=== PATIENT | male | born 1965 | race Caucasian/White ===

== ENCOUNTER 2016-07-20 11:15 | Inpatient (IN) | payer BC ==
[2016-07-20] MEDS ORDERED: Sodium Chloride 0.9% 1,000 ML IV ONE ×2 (11:43→15:52)
[2016-07-20] MEDS ORDERED: Ondansetron 4 MG/2 ML SDV IVPUSH ONE ×3 (11:43→15:45)
--- NOTE | 2016-07-20 11:56 | EDM.PDOC ---
ED HPI GI/ABDOMINAL - General Chief Complaint: Gastrointestinal Problem Stated Complaint: Vomiting Time Seen by Provider: 07/20/16 11:35 Source of Information: Reports: Patient History Limitations: Reports: No limitations - History of Present Illness INITIAL COMMENTS - FREE TEXT/NARRATIVE: HISTORY AND PHYSICAL: History of present illness: [Patient comes to the emergency room complaining of vomiting and diarrhea since 1 AM this morning. Symptoms came on suddenly while he was working during the night and have gradually worsened. He states that his entire abdomen hurts and he feels very nauseated even with drinking water. States that he's never had a stomach ache this bad. Had 1 episode of feeling constipated which quickly turned to diarrhea type stools. Stools are loose and watery and the urge to have a bowel movement hits fast. He describes the pain as a cramping sensation throughout his abdomen. He's not taken any medications for his symptoms. Does not drink alcohol. Has a history of hypertension and hypercholesterolemia. History of avascular necrosis to L hip. Surgical history includes tonsillectomy , right hip replacement, left ear surgery. He has not taken his medications today. He denies chest pain shortness of breath and difficulty breathing. Has no appetite since development of pain, vomiting or diarrhea. No burning with urination, urinary frequency or urgency. No fever or chills. Denies joint pain and muscle aches. No swelling to his feet or lower legs. Denies any cardiac history. Noticed small amount of blood on toilet paper while wiping. He admits to a history of hemorrhoids. Denies any rectal pain. Has one episode of loose bloody stool on the emergency room.] Review of systems: As per history of present illness and below otherwise all systems reviewed and negative. Past medical history: As per history of present illness and as reviewed below otherwise noncontributory. Surgical history: As per history of present illness and as reviewed below otherwise noncontributory. Social history: No reported history of drug or alcohol abuse. Family history: As per history of present illness and as reviewed below otherwise noncontributory. Physical exam: General: Well-developed well-nourished male in no acute distress. He appears uncomfortable rolling around on the exam table, holding his lower abdomen. HEENT: Atraumatic, normocephalic. Oral mucous membranes are mildly dry. neck supple, nontender, no lymphadenopathy. Lungs: Clear to auscultation, no wheezing crackles or rales. breath sounds equal bilaterally, chest nontender. Heart: S1S2, regular rate and rhythm., negative for clicks, rubs, or JVD. Abdomen: Abdominal exam is difficult due to Generalized tenderness throughout his abdomen with even light palpation. No CVA tenderness. No masses or abnormalities noted upon inspection. Pelvis: Stable nontender. Genitourinary: Deferred. Rectal: Deferred. Extremities: Atraumatic, no cyanosis feet or lower legs. Neurovascular unremarkable. Neuro: Awake, alert, oriented. Cranial nerves II through XII unremarkable. Motor and sensory unremarkable throughout. Exam nonfocal. Diagnostics: [CBC, CMP, urinalysis, amylase, lipase, CT abd and pelvis w/ contrast] Therapeutics: [Zofran 4 mg IV x3 while in ER, 1 L normal saline, Dilaudid 1 mg IV x 2, hyoscyamine 0.125mg SL Impression: [acute colitis, ischemic vs infectious or inflammatory ] Plan: [Discussed patient's CT findings and condition with Dr. Demetra Coe, who comes to the ER to examine patient. Dr. Matt Del Real agrees to accept patient for inpatient treatment. Zosyn 4.5gm IV started in ER prior to transfer to the floor.] Definitive disposition and diagnosis as appropriate pending reevaluation and review of above. - Related Data Allergies/ADRs: Allergies Allergy/AdvReac Type Severity Reaction Status Date / Time No Known Allergies Allergy Verified 07/20/16 11:31 Home Meds: Home Meds Buprenorphine HCl/Naloxone HCl [Suboxone 4 mg-1 mg Sl Film] 8 mg PO ASDIRECTED PRN 11/06/15 [History] Simvastatin [Zocor] 1 tab PO DAILY 11/06/15 [History] Valsartan/Hydrochlorothiazide [Valsartan-Hctz 160-25 mg Tab] 1 tab PO DAILY [History] Venlafaxine [Effexor] 75 mg PO DAILY 07/20/16 [History] Past Medical History Cardiovascular History: Reports: High cholesterol, Hypertension, PVD Other Respiratory History: states he thinks he has sleep apnea but has not been diagnosed, smokes 2 pks per day Gastrointestinal History: Reports: Hemorrhoids Neurological History: Reports: Neuropathy, peripheral Psychiatric History: Reports: Anxiety, Depression Endocrine/Metabolic History: Reports: Obesity/BMI 30+ Hematologic History: Reports: None Immunologic History: Reports: None Oncologic (Cancer) History: Reports: None Dermatologic History: Reports: None - Past Surgical History HEENT Surgical History: Reports: Adenoidectomy, Naso-sinus surgery, Tonsillectomy Male Surgical History: Reports: Vasectomy Other Musculoskeletal Surgeries/Procedures:: tendon release lt elbow, rt JOSEPHINE, avascular necrosis of the hip, Social & Family History - Family History Family Medical History: Noncontributory - Tobacco Use Smoking Status *Q: Current Every Day Smoker Years of Tobacco use: 30 Packs/Tins Daily: 1 Used Tobacco, but Quit: No Second Hand Smoke Exposure: No - Caffeine Use Caffeine Use: Reports: None - Alcohol Use Days Per Week of Alcohol Use: 0 - Recreational Drug Use Recreational Drug Use: No Drug Use in Last 12 Months: No ED ROS GENERAL - Review of Systems Review Of Systems: ROS reveals no pertinent complaints other than HPI. ED EXAM, GI/ABD - Physical Exam Exam: See Below Course - Vital Signs Last Recorded V/S: Last Vital Signs Temp 97 F 07/20/16 11:32 Pulse 79 07/20/16 15:55 Resp 18 07/20/16 15:55 BP 138/71 07/20/16 15:55 Pulse Ox 96 07/20/16 15:55 - Orders/Labs/Meds Orders: Active Orders 24 hr Category Date Time Status Abdomen Pelvis w Cont [CT] Stat Exams 07/20/16 13:24 Taken Labs: Laboratory Tests 07/20/16 07/20/16 07/20/16 Range/Units 11:57 11:57 11:57 WBC 13.09 H (4.0-11.0) K/uL RBC 5.14 (4.50-5.90) M/uL Hgb 15.7 (13.0-17.0) g/dL Hct 45.3 (38.0-50.0) % MCV 88.1 (80.0-98.0) fL MCH 30.5 (27.0-32.0) pg MCHC 34.7 (31.0-37.0) g/dL RDW Std Deviation 39.9 (28.0-62.0) fl RDW Coeff of Aliza 12 (11.0-15.0) % Plt Count 230 (150-400) K/uL MPV 10.20 (7.40-12.00) fL Neut % (Auto) 81.3 H (48.0-80.0) % Lymph % (Auto) 11.9 L (16.0-40.0) % [place] % (Auto) 6.3 (0.0-15.0) % Eos % (Auto) 0.3 (0.0-7.0) % Baso % (Auto) 0.2 (0.0-1.5) % Neut # (Auto) 10.6 H (1.4-5.7) K/uL Lymph # (Auto) 1.6 (0.6-2.4) K/uL [place] # (Auto) 0.8 (0.0-0.8) K/uL Eos # (Auto) 0.0 (0.0-0.7) K/uL Baso # (Auto) 0.0 (0.0-0.1) K/uL Nucleated RBC % 0.0 /100WBC Nucleated RBCs # 0 K/uL Lactate (0.20-2.00) mmol/L Sodium 136 (136-146) mmol/L Potassium 3.8 (3.5-5.1) mmol/L Chloride 102 (98-110) mmol/L Carbon Dioxide 24 (21-31) mmol/L BUN 19 (6.0-23.0) mg/dL Creatinine 0.9 (0.6-1.5) mg/dL Est Cr Clr Drug Dosing 103.42 mL/min Estimated GFR (MDRD) > 60.0 ml/min Glucose 276 H (60-110) mg/dL Hemoglobin A1c 9.6 H (0.0-6.0) % Calcium 9.2 (8.8-10.8) mg/dL Total Bilirubin 0.8 (0.1-1.5) mg/dL AST 23 (5-40) IU/L ALT 29 (8-54) IU/L Alkaline Phosphatase 75 (40-150) Total Protein 7.2 (6.0-8.0) g/dL Albumin 4.2 (3.5-5.0) g/dL Globulin 3.0 (2.0-3.5) g/dL Albumin/Globulin Ratio 1.4 (1.3-2.8) Amylase 17 (10-90) U/L Lipase 19 (7-80) U/L Urine Color Urine Appearance Urine pH (5.0-8.0) Ur Specific [place] (1.001-1.035) Urine Protein (NEGATIVE) mg/dL Urine Glucose (UA) (NEGATIVE) mg/dL Urine Ketones (NEGATIVE) mg/dL Urine Occult Blood (NEGATIVE) Urine Nitrite (NEGATIVE) Urine Bilirubin (NEGATIVE) Urine Urobilinogen (<2.0) EU/dL Ur Leukocyte Esterase (NEGATIVE) Urine RBC (0-2/HPF) Urine WBC (0-5/HPF) Ur Squamous Epith Cells Urine Bacteria (NEGATIVE) Urine Mucus (NONE-MOD) 07/20/16 07/20/16 Range/Units 12:58 15:15 WBC (4.0-11.0) K/uL RBC (4.50-5.90) M/uL Hgb (13.0-17.0) g/dL Hct (38.0-50.0) % MCV (80.0-98.0) fL MCH (27.0-32.0) pg MCHC (31.0-37.0) g/dL RDW Std Deviation (28.0-62.0) fl RDW Coeff of Aliza (11.0-15.0) % Plt Count (150-400) K/uL MPV (7.40-12.00) fL Neut % (Auto) (48.0-80.0) % Lymph % (Auto) (16.0-40.0) % [place] % (Auto) (0.0-15.0) % Eos % (Auto) (0.0-7.0) % Baso % (Auto) (0.0-1.5) % Neut # (Auto) (1.4-5.7) K/uL Lymph # (Auto) (0.6-2.4) K/uL [place] # (Auto) (0.0-0.8) K/uL Eos # (Auto) (0.0-0.7) K/uL Baso # (Auto) (0.0-0.1) K/uL Nucleated RBC % /100WBC Nucleated RBCs # K/uL Lactate 2.1 H (0.20-2.00) mmol/L Sodium (136-146) mmol/L Potassium (3.5-5.1) mmol/L Chloride (98-110) mmol/L Carbon Dioxide (21-31) mmol/L BUN (6.0-23.0) mg/dL Creatinine (0.6-1.5) mg/dL Est Cr Clr Drug Dosing mL/min Estimated GFR (MDRD) ml/min Glucose (60-110) mg/dL Hemoglobin A1c (0.0-6.0) % Calcium (8.8-10.8) mg/dL Total Bilirubin (0.1-1.5) mg/dL AST (5-40) IU/L ALT (8-54) IU/L Alkaline Phosphatase (40-150) Total Protein (6.0-8.0) g/dL Albumin (3.5-5.0) g/dL Globulin (2.0-3.5) g/dL Albumin/Globulin Ratio (1.3-2.8) Amylase (10-90) U/L Lipase (7-80) U/L Urine Color YELLOW Urine Appearance CLEAR Urine pH 6.0 (5.0-8.0) Ur Specific [place] 1.025 (1.001-1.035) Urine Protein 30 (NEGATIVE) mg/dL Urine Glucose (UA) 500 H (NEGATIVE) mg/dL Urine Ketones TRACE H (NEGATIVE) mg/dL Urine Occult Blood TRACE-INTACT (NEGATIVE) Urine Nitrite NEGATIVE (NEGATIVE) Urine Bilirubin NEGATIVE (NEGATIVE) Urine Urobilinogen 0.2 (<2.0) EU/dL Ur Leukocyte Esterase NEGATIVE (NEGATIVE) Urine RBC 0-2 (0-2/HPF) Urine WBC NONE SEEN (0-5/HPF) Ur Squamous Epith Cells FEW Urine Bacteria NOT SEEN (NEGATIVE) Urine Mucus LIGHT (NONE-MOD) Meds: Medications Discontinued Medications Generic Name Dose Route Start Last Admin Trade Name Freq PRN Reason Stop Dose Admin Hydromorphone HCl 1 mg 07/20/16 15:45 07/20/16 15:51 Dilaudid IM 07/20/16 15:46 1 mg ONETIME ONE Administration Hydromorphone HCl 0.5 mg 07/20/16 16:42 07/20/16 16:53 Dilaudid IVPUSH 07/20/16 16:43 0.5 mg ONETIME ONE Administration Hyoscyamine 0.125 mg 07/20/16 12:19 07/20/16 12:32 Hyomax-Sl SL 07/20/16 12:20 0.125 mg ONETIME ONE Administration Sodium Chloride 1,000 mls @ 999 mls/hr 07/20/16 11:43 07/20/16 11:51 Normal Saline IV 07/20/16 12:43 999 mls/hr STAT ONE Administration Piperacillin Sod/Tazobactam 100 mls @ 100 mls/hr 07/20/16 15:52 07/20/16 16: 14 Sod 4.5 gm/ Sodium Chloride IV 07/20/16 16:51 100 mls/hr ONETIME ONE Administration Sodium Chloride 1,000 mls @ 999 mls/hr 07/20/16 15:52 07/20/16 16:14 Normal Saline IV 07/20/16 16:52 100 mls/hr STAT ONE Infusion Iopamidol 100 ml 07/20/16 16:04 07/20/16 16:06 Isovue-370 (76%) IVPUSH 07/20/16 16:05 100 ml ONETIME STA Administration Ondansetron HCl 4 mg 07/20/16 11:43 07/20/16 11:52 Zofran IVPUSH 07/20/16 11:44 4 mg ONETIME ONE Administration Ondansetron HCl 4 mg 07/20/16 12:17 07/20/16 12:20 Zofran IVPUSH 07/20/16 12:18 4 mg ONETIME ONE Administration Ondansetron HCl 4 mg 07/20/16 15:45 07/20/16 15:52 Zofran IVPUSH 07/20/16 15:46 4 mg ONETIME ONE Administration Departure - Departure Time of Disposition: 16:06 Disposition: Admitted As Inpatient 65 Condition: good Clinical Impression: Colitis - My Orders Last 24 Hours: My Active Orders 07/20/16 13:24 Abdomen Pelvis w Cont [CT] Stat - Assessment/Plan Last 24 Hours: My Active Orders 07/20/16 13:24 Abdomen Pelvis w Cont [CT] Stat
[2016-07-20] MEDS ORDERED: Hyoscyamine 0.125 MG Tab.SL SL ONE (12:19)
[2016-07-20 12:28] LABS: CHLORIDE,CL 102 mmol/L (98-110); SODIUM,NA 136 mmol/L (136-146)
[2016-07-20] MEDS ORDERED: HYDROmorphone 1 MG/ML Syringe IM ONE (15:45)
[2016-07-20] MEDS ORDERED: Piperacillin/Tazobactam 4.5 GM in Sodium Chloride 0.9% 100 ML IV ONE (15:52)
--- NOTE | 2016-07-20 15:59 | PCM.CONS ---
H&P History of Present Illness - General Date of Service: 07/20/16 Admit Problem/Dx: Acute abdominal pain Source of Information: Patient History Limitations: Reports: No limitations - History of Present Illness Initial Comments - Free Text/Narative: Patient is a 50 year old male who presents with acute onset of LUQ pain. He noted it last evening around 1 am. He states that the pain is sharp, burning, and constant. He rates the pain as "12 out of 10". It was associated with nausea and vomiting. The vomit was food then bilious, but not bloody. He also had diarrhea. The diarrhea was watery until his last BM right now which was bloody. He denies fever, chills,chest pain, shortness of breath, infectious contacts, recent illness, recent travel or ever having symptoms like this in the past. The pain resolved with narcotic administration in the ED. abdomen Pain Score (Numeric/FACES): 10 - Related Data Allergies/Adverse Reactions: Allergies Allergy/AdvReac Type Severity Reaction Status Date / Time No Known Allergies Allergy Verified 07/20/16 11:31 Home Medications: Home Meds Buprenorphine HCl/Naloxone HCl [Suboxone 4 mg-1 mg Sl Film] 8 mg PO ASDIRECTED PRN 11/06/15 [History] Simvastatin [Zocor] 1 tab PO DAILY 11/06/15 [History] Valsartan/Hydrochlorothiazide [Valsartan-Hctz 160-25 mg Tab] 1 tab PO DAILY [History] Venlafaxine [Effexor] 75 mg PO DAILY 07/20/16 [History] Past Medical History Cardiovascular History: Reports: High cholesterol, Hypertension, PVD Other Respiratory History: states he thinks he has sleep apnea but has not been diagnosed, smokes 2 pks per day Gastrointestinal History: Reports: Hemorrhoids Neurological History: Reports: Neuropathy, peripheral Psychiatric History: Reports: Anxiety, Depression Endocrine/Metabolic History: Reports: Obesity/BMI 30+ Other Endocrine/Metabolic History: Recent high glucose measurements, but no diagnosis of diabetes. Hematologic History: Reports: None Immunologic History: Reports: None Oncologic (Cancer) History: Reports: None Dermatologic History: Reports: None - Past Surgical History HEENT Surgical History: Reports: Adenoidectomy, Naso-sinus surgery, Tonsillectomy Male Surgical History: Reports: Vasectomy Other Musculoskeletal Surgeries/Procedures:: tendon release lt elbow, rt JOSEPHINE, avascular necrosis of the hip, Social & Family History - Family History Family Medical History: Noncontributory - Tobacco Use Smoking Status *Q: Current Every Day Smoker Years of Tobacco use: 30 Packs/Tins Daily: 1 Used Tobacco, but Quit: No Second Hand Smoke Exposure: No - Caffeine Use Caffeine Use: Reports: None - Alcohol Use Days Per Week of Alcohol Use: 0 - Recreational Drug Use Recreational Drug Use: No Drug Use in Last 12 Months: No H&P Review of Systems - Review of Systems: Review Of Systems: See Below Exam - Exam Exam: See Below - Vital Signs Vital Signs: Last Vital Signs Temp 36.1 C 07/20/16 11:32 Pulse 71 07/20/16 15:26 Resp 20 07/20/16 15:26 BP 137/71 07/20/16 15:26 Pulse Ox 98 07/20/16 15:26 Weight: 117.5 kg - Exam General: alert, oriented, moderate distress HEENT: Conjunctiva clear, Posterior pharynx clear, Pupils equal, Pupils reactive Neck: supple Lungs: Clear to auscultation, Normal respiratory effort Cardiovascular: regular rate, regular rhythm Abdomen: other (Mild distension, tender to palpation in the LUQ and epigastric area with palpation, no evidence of diffuse tenderness or peritoneal signs) Extremities: normal inspection, normal pulses - Patient Data Lab Results last 24 hrs: Laboratory Results - last 24 hr 07/20/16 07/20/16 07/20/16 Range/Units 11:57 11:57 12:58 WBC 13.09 H (4.0-11.0) K/uL RBC 5.14 (4.50-5.90) M/uL Hgb 15.7 (13.0-17.0) g/dL Hct 45.3 (38.0-50.0) % MCV 88.1 (80.0-98.0) fL MCH 30.5 (27.0-32.0) pg MCHC 34.7 (31.0-37.0) g/dL RDW Std Deviation 39.9 (28.0-62.0) fl RDW Coeff of Aliza 12 (11.0-15.0) % Plt Count 230 (150-400) K/uL MPV 10.20 (7.40-12.00) fL Neut % (Auto) 81.3 H (48.0-80.0) % Lymph % (Auto) 11.9 L (16.0-40.0) % [place] % (Auto) 6.3 (0.0-15.0) % Eos % (Auto) 0.3 (0.0-7.0) % Baso % (Auto) 0.2 (0.0-1.5) % Neut # (Auto) 10.6 H (1.4-5.7) K/uL Lymph # (Auto) 1.6 (0.6-2.4) K/uL [place] # (Auto) 0.8 (0.0-0.8) K/uL Eos # (Auto) 0.0 (0.0-0.7) K/uL Baso # (Auto) 0.0 (0.0-0.1) K/uL Nucleated RBC % 0.0 /100WBC Nucleated RBCs # 0 K/uL Lactate (0.20-2.00) mmol/L Sodium 136 (136-146) mmol/L Potassium 3.8 (3.5-5.1) mmol/L Chloride 102 (98-110) mmol/L Carbon Dioxide 24 (21-31) mmol/L BUN 19 (6.0-23.0) mg/dL Creatinine 0.9 (0.6-1.5) mg/dL Est Cr Clr Drug Dosing 103.42 mL/min Estimated GFR (MDRD) > 60.0 ml/min Glucose 276 H (60-110) mg/dL Calcium 9.2 (8.8-10.8) mg/dL Total Bilirubin 0.8 (0.1-1.5) mg/dL AST 23 (5-40) IU/L ALT 29 (8-54) IU/L Alkaline Phosphatase 75 (40-150) Total Protein 7.2 (6.0-8.0) g/dL Albumin 4.2 (3.5-5.0) g/dL Globulin 3.0 (2.0-3.5) g/dL Albumin/Globulin Ratio 1.4 (1.3-2.8) Amylase 17 (10-90) U/L Lipase 19 (7-80) U/L Urine Color YELLOW Urine Appearance CLEAR Urine pH 6.0 (5.0-8.0) Ur Specific [place] 1.025 (1.001-1.035) Urine Protein 30 (NEGATIVE) mg/dL Urine Glucose (UA) 500 H (NEGATIVE) mg/dL Urine Ketones TRACE H (NEGATIVE) mg/dL Urine Occult Blood TRACE-INTACT (NEGATIVE) Urine Nitrite NEGATIVE (NEGATIVE) Urine Bilirubin NEGATIVE (NEGATIVE) Urine Urobilinogen 0.2 (<2.0) EU/dL Ur Leukocyte Esterase NEGATIVE (NEGATIVE) Urine RBC 0-2 (0-2/HPF) Urine WBC NONE SEEN (0-5/HPF) Ur Squamous Epith Cells FEW Urine Bacteria NOT SEEN (NEGATIVE) Urine Mucus LIGHT (NONE-MOD) 07/20/16 Range/Units 15:15 WBC (4.0-11.0) K/uL RBC (4.50-5.90) M/uL Hgb (13.0-17.0) g/dL Hct (38.0-50.0) % MCV (80.0-98.0) fL MCH (27.0-32.0) pg MCHC (31.0-37.0) g/dL RDW Std Deviation (28.0-62.0) fl RDW Coeff of Aliza (11.0-15.0) % Plt Count (150-400) K/uL MPV (7.40-12.00) fL Neut % (Auto) (48.0-80.0) % Lymph % (Auto) (16.0-40.0) % [place] % (Auto) (0.0-15.0) % Eos % (Auto) (0.0-7.0) % Baso % (Auto) (0.0-1.5) % Neut # (Auto) (1.4-5.7) K/uL Lymph # (Auto) (0.6-2.4) K/uL [place] # (Auto) (0.0-0.8) K/uL Eos # (Auto) (0.0-0.7) K/uL Baso # (Auto) (0.0-0.1) K/uL Nucleated RBC % /100WBC Nucleated RBCs # K/uL Lactate 2.1 H (0.20-2.00) mmol/L Sodium (136-146) mmol/L Potassium (3.5-5.1) mmol/L Chloride (98-110) mmol/L Carbon Dioxide (21-31) mmol/L BUN (6.0-23.0) mg/dL Creatinine (0.6-1.5) mg/dL Est Cr Clr Drug Dosing mL/min Estimated GFR (MDRD) ml/min Glucose (60-110) mg/dL Calcium (8.8-10.8) mg/dL Total Bilirubin (0.1-1.5) mg/dL AST (5-40) IU/L ALT (8-54) IU/L Alkaline Phosphatase (40-150) Total Protein (6.0-8.0) g/dL Albumin (3.5-5.0) g/dL Globulin (2.0-3.5) g/dL Albumin/Globulin Ratio (1.3-2.8) Amylase (10-90) U/L Lipase (7-80) U/L Urine Color Urine Appearance Urine pH (5.0-8.0) Ur Specific [place] (1.001-1.035) Urine Protein (NEGATIVE) mg/dL Urine Glucose (UA) (NEGATIVE) mg/dL Urine Ketones (NEGATIVE) mg/dL Urine Occult Blood (NEGATIVE) Urine Nitrite (NEGATIVE) Urine Bilirubin (NEGATIVE) Urine Urobilinogen (<2.0) EU/dL Ur Leukocyte Esterase (NEGATIVE) Urine RBC (0-2/HPF) Urine WBC (0-5/HPF) Ur Squamous Epith Cells Urine Bacteria (NEGATIVE) Urine Mucus (NONE-MOD) Result Diagrams: 07/20/16 11:57 07/20/16 11:57 Consult PN Assessment/Plan Procedures: Procedures ANTINUCLEAR ANTIBODIES (01/10/16) ASSAY OF FREE TESTOSTERONE (01/10/16) ASSAY OF FREE THYROXINE (10/26/15) ASSAY OF TOTAL TESTOSTERONE (01/10/16) ASSAY THYROID STIM HORMONE (10/26/15) CHEST X-RAY 2VW FRONTAL&LATL (04/10/16) COLONOSCOPY AND BIOPSY (11/09/15) COLONOSCOPY W/LESION REMOVAL (11/09/15) COMPLETE CBC W/AUTO DIFF WBC (10/26/15) COMPREHEN METABOLIC PANEL (10/26/15) CULTURE SCREEN ONLY (04/10/16) EMERGENCY DEPT VISIT (06/20/14) GLYCOSYLATED HEMOGLOBIN TEST (01/10/16) LIPID PANEL (10/26/15) MRI JNT OF LWR EXTRE W/O DYE (09/27/14) MRI LOWER EXTREMITY W/O DYE (09/27/14) ORGANIC ACID SINGLE QUANT (01/10/16) PROTEIN E-PHORESIS SERUM (01/10/16) ROUTINE VENIPUNCTURE (01/10/16) STREP A ASSAY W/OPTIC (04/10/16) THER/PROPH/DIAG INJ SC/IM (01/22/14) US XTR NON-VASC COMPLETE (09/27/14) VITAMIN B-12 (01/10/16) X-RAY EXAM OF FOOT (06/20/14) X-RAY EXAM OF HIP (09/22/14) (1) Acute ischemic colitis SNOMED Code(s): 02020280 Code(s): K55.039 - ACUTE ISCHEMIA OF LARGE INTESTINE, EXTENT UNSPECIFIED Current Visit: Yes Problem List Initiated/Reviewed/Updated: Yes Plan: At this point in time the patient's pain is localized the left upper quadrant. His bowel on CT shows inflamed colon in the water-shed distribution around the splenic flexure with mild-moderate amount of thickening. There is no evidence of pneumo-intestinalis or perforation. His lactate is 2.1 and WBC is 13. His vitals are stable. Given the distribution of colon effected, i believe this is acute ischemic colitis. The etiology of this is not clear at this point. My differential would highly favor a non-occlusive reason such as hypovolemia, infection, vaso-constrictive medication/drug, or combination of these with his overall health state. The patient doesn't have any CT evidence of embolic occlusion of the major vessels and he has minimal atherosecleotic disease which I observed and confirmed with radiology. He does have significant fatty liver disease. He is a heavy smoker with HLD, HTN, and possible new onset diabetes (checking hemoglobin A1C). The patient is stable overall at this point in time. I will have him admitted to the medicine service. He should be kept on strict NPO, have IV fluid resucitation, and be started emperically on Zosyn. Would place patient on a dilaudid [employer] for pain control. I would get serial lactates and cbc (every 6 hours). I will perform serial abdominal exams on him. If he has any deterioration in clinical status or physical exam he should be transferred to a hospital with a higher level of care. If he has perforation or ischemic colitis requiring surgery this may require a temporary abdominal closure and ICU care that is beyond the scope of resources at this facility.
[2016-07-20] MEDS ORDERED: Iopamidol 755 Mg/ML 100 ML Bottle IVPUSH STA (16:04)
[2016-07-20] MEDS ORDERED: HYDROmorphone 2 MG/ML Syringe IVPUSH ONE (16:42)
[2016-07-20] MEDS ORDERED: Promethazine 25 MG/ML SDV IM PRN (17:41)
[2016-07-20] MEDS: HYDROmorphone/Normal Saline 6 MG/30 ML PCA Vial IV PRN (18:21)
[2016-07-20] MEDS: Sodium Chloride 0.9% 1,000 ML IV SCH (18:22)
[2016-07-20] MEDS ORDERED: Ondansetron 4 MG/2 ML SDV IVPUSH PRN (19:32)
[2016-07-20] MEDS: Insulin Aspart 100 Units/ML 3 ML Pen SUBCUT SCH (19:33)
--- NOTE | 2016-07-20 19:38 | PCM.HP ---
H&P History of Present Illness - General Admit Problem/Dx: Acute abdominal pain - History of Present Illness Initial Comments - Free Text/Narative: 50 yo male with pmh of hyperlipdemia and hypertension who presents with one day history of abdominal pain. He has associated symptoms of nausea and vomiting. This morning he did have red blood in stool. He denies any fevers or chills. He was evaluated in the ED with CT scan of abdomen which reported wall thickening involving the colon from the mid to distal transverse colon to the splenic flexture with surrounding inflammatory stranding consistent with an acute colitis. abdomen Pain Score (Numeric/FACES): 5 - Related Data Allergies/Adverse Reactions: Allergies Allergy/AdvReac Type Severity Reaction Status Date / Time No Known Allergies Allergy Verified 07/20/16 11:31 Home Medications: Home Meds Buprenorphine HCl/Naloxone HCl [Suboxone 4 mg-1 mg Sl Film] 8 mg PO ASDIRECTED PRN 11/06/15 [History] Simvastatin [Zocor] 40 mg PO BEDTIME 11/06/15 [History] Valsartan/Hydrochlorothiazide [Valsartan-Hctz 160-25 mg Tab] 1 tab PO DAILY [History] Venlafaxine HCl [Venlafaxine ER] 75 mg PO DAILY 07/21/16 [History] Past Medical History Cardiovascular History: Reports: High cholesterol, Hypertension, PVD Other Respiratory History: states he thinks he has sleep apnea but has not been diagnosed, smokes 2 pks per day Gastrointestinal History: Reports: Hemorrhoids Neurological History: Reports: Neuropathy, peripheral Psychiatric History: Reports: Anxiety, Depression Endocrine/Metabolic History: Reports: Obesity/BMI 30+ Other Endocrine/Metabolic History: Recent high glucose measurements, but no diagnosis of diabetes. Hematologic History: Reports: None Immunologic History: Reports: None Oncologic (Cancer) History: Reports: None Dermatologic History: Reports: None - Past Surgical History HEENT Surgical History: Reports: Adenoidectomy, Naso-sinus surgery, Tonsillectomy Male Surgical History: Reports: Vasectomy Other Musculoskeletal Surgeries/Procedures:: tendon release lt elbow, rt JOSEPHINE, avascular necrosis of the hip, Social & Family History - Family History Family Medical History: Noncontributory - Tobacco Use Smoking Status *Q: Current Every Day Smoker Years of Tobacco use: 30 Packs/Tins Daily: 1 Used Tobacco, but Quit: No Second Hand Smoke Exposure: No - Caffeine Use Caffeine Use: Reports: None - Alcohol Use Days Per Week of Alcohol Use: 0 - Recreational Drug Use Recreational Drug Use: No Drug Use in Last 12 Months: No H&P Review of Systems - Review of Systems: Review Of Systems: See Below General: Reports: no symptoms HEENT: Reports: no symptoms Pulmonary: Reports: No Symptoms Cardiovascular: Reports: no symptoms Gastrointestinal: Reports: Abdominal pain, Bloody stool, Diarrhea, Nausea, Vomiting Genitourinary: Reports: no symptoms Musculoskeletal: Reports: no symptoms Skin: Reports: no symptoms Psychiatric: Reports: no symptoms Neurological: Reports: No Symptoms Hematologic/Lymphatic: Reports: no symptoms Immunologic: Reports: no symptoms Exam - Exam Exam: See Below - Vital Signs Vital Signs: Last Vital Signs Temp 37.4 C 07/20/16 18:42 Pulse 85 07/20/16 18:42 Resp 18 07/20/16 18:42 BP 147/97 H 07/20/16 18:42 Pulse Ox 95 07/20/16 18:42 Weight: 118.025 kg - Exam General: alert, oriented, 4 Lungs: Clear to auscultation, Normal respiratory effort Cardiovascular: regular rate, regular rhythm Abdomen: normal bowel sounds, soft, tenderness (patient has recently received pain medications). No: distention, guarding, rigidity, rebound Extremities: normal inspection. No: edema Skin: warm, dry, intact - Patient Data Result Diagrams: 07/21/16 14:58 07/21/16 03:10 *Q Meaningful Use (ADM) - VTE *Q VTE Criteria *Q: - Stroke *Q Stroke Criteria *Q: - AMI *Q AMI Criteria *Q: Problem List Initiated/Reviewed/Updated: Yes Orders Last 24hrs: Active Orders 24 hr Category Date Time Status Admission Status [Patient Status] [ADT] Routine ADT 07/20/16 16:06 Active Accu Check [Blood Glucose Check, Bedside] [RC] Q6H Care 07/20/16 17:45 Active Antiembolic Devices [RC] PER UNIT ROUTINE Care 07/20/16 19:33 Ordered Intake and Output [RC] QSHIFT Care 07/20/16 19:32 Ordered Oxygen Therapy [RC] PRN Care 07/20/16 19:32 Ordered Up ad Anali [RC] ASDIRECTED Care 07/20/16 19:32 Ordered VTE/DVT Education [RC] PER UNIT ROUTINE Care 07/20/16 19:32 Ordered Vital Signs [RC] Q4H Care 07/20/16 19:32 Ordered Nothing Per Oral Diet [DIET] Diet 07/20/16 Dinner Active CBC WITH AUTO DIFF [HEME] Q6H Lab 07/20/16 21:00 Ordered CBC WITH AUTO DIFF [HEME] Q6H Lab 07/21/16 03:00 Ordered CBC WITH AUTO DIFF [HEME] Q6H Lab 07/21/16 09:00 Ordered CBC WITH AUTO DIFF [HEME] Q6H Lab 07/21/16 15:00 Ordered CBC WITH AUTO DIFF [HEME] Q6H Lab 07/21/16 21:00 Ordered CBC WITH AUTO DIFF [HEME] Routine Lab 07/21/16 05:00 Ordered CDIFF TOX A+B [OP] Routine Lab 07/20/16 19:31 Uncollected CMP [COMPREHENSIVE METABOLIC PN,CMP] [CHEM] Routine Lab 07/21/16 05:00 Ordered CULTURE STOOL + CAMPY+SHIGATOX [RM] Routine Lab 07/20/16 19:31 Uncollected LACTIC ACID,WHOLE BLOOD [BG] Q6H Lab 07/20/16 21:15 Ordered LACTIC ACID,WHOLE BLOOD [BG] Q6H Lab 07/21/16 03:15 Ordered WBC, STOOL [OP] Routine Lab 07/20/16 19:31 Uncollected HYDROmorphone/Normal Saline [Dilaudid SPRAY MACHINE TENDER 6 MG in NS 30 Med 07/20/16 17:36 Active ML] 6 mg IV ASDIRECTED PRN Insulin Aspart [NovoLOG] Med 07/20/16 19:00 Active See Protocol SUBCUT Q6H Ondansetron [Zofran] Med 07/20/16 19:32 Ordered 4 mg IVPUSH Q4H PRN Piperacillin/Tazobactam [Piperacil-Tazobact] 4.5 gm Med 07/20/16 22:00 Active Sodium Chloride 0.9% [Normal Saline] 100 ml IV Q6H Promethazine [Phenergan] Med 07/20/16 17:41 Active 12.5 mg IM Q6H PRN Sodium Chloride 0.9% [Normal Saline] 1,000 ml Med 07/20/16 17:45 Active IV ASDIRECTED Sequential Compression Device [OM.PC] Per Unit Routine Oth 07/20/16 19:32 Ordered Resuscitation Status Routine Resus Stat 07/20/16 19:32 Ordered Medication Orders Hydromorphone HCl (Dilaudid Sack Maker 6 Mg In Ns 30 Ml) 6 mg IV ASDIRECTED PRN; Protocol PRN Reason: Abdominal Pain Last Admin: 07/20/16 18:21 Dose: 6 mg Sodium Chloride (Normal Saline) 1,000 mls @ 175 mls/hr IV ASDIRECTED WOJCIECH Last Admin: 07/20/16 18:22 Dose: 100 mls/hr Piperacillin Sod/Tazobactam (Sod 4.5 gm/ Sodium Chloride) 100 mls @ 100 mls/hr IV Q6H WOJCIECH Insulin Aspart (Novolog) 0 unit SUBCUT Q6H WOJCIECH PRN Reason: Protocol Promethazine HCl (Phenergan) 12.5 mg IM Q6H PRN PRN Reason: Nausea/Vomiting Last Admin: 07/20/16 18:16 Dose: 12.5 mg Assessment/Plan Comment:: 51 yo male admitted with acute colitis. I appreciate Dr. Coe's consult. Will fluid rescucitate with IV fluids, keep NPO and place on zosyn. Will check lactic acid and CBC q6hrs.
--- NOTE | 2016-07-20 19:50 | PCM.SN ---
- Free Text/Narrative Note: Serial Abdominal Exam #1: Patient is on the floor. He is NPO with IVF resuscitation ongoing. He has received one dose of zosyn. Subjectively he feels much improved. 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 His vitals have been stable since admission. Patient having good UOP. On physical exam his abdomen is less distended and far less tender. He remains tender in the LUQ but less so. Will follow up on labs this evening and continue serial abdominal exams.
[2016-07-20] MEDS: Piperacillin/Tazobactam 4.5 GM in Sodium Chloride 0.9% 100 ML IV SCH (21:26)
[2016-07-21] MEDS: Insulin Aspart 100 Units/ML 3 ML Pen SUBCUT SCH ×4 (00:16→18:33)
[2016-07-21] MEDS: Sodium Chloride 0.9% 1,000 ML IV SCH ×4 (00:21→21:06)
[2016-07-21] MEDS: Piperacillin/Tazobactam 4.5 GM in Sodium Chloride 0.9% 100 ML IV SCH ×5 (03:21→22:21)
[2016-07-21 03:47] LABS: CHLORIDE,CL 106 mmol/L (98-110); SODIUM,NA 139 mmol/L (136-146)
--- NOTE | 2016-07-21 08:04 | PCM.PN ---
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 This a.m. I saw patient and he had just got up for the first time today. Was having more pain still in his LUQ with getting up. This made him feel nauseated. He also is complaining of a headache. He drinks a fair amount of caffeine per day and hasnt had any for >24 hours. Is requesting a tylenol for the headache. Denies fevers, chills, chest pain, shortness of breath. - Review of Systems General: Reports: Appetite HEENT: Reports: no symptoms Pulmonary: Reports: no symptoms Cardiovascular: Reports: No Symptoms Gastrointestinal: Reports: Abdominal pain, Other (No BM since admission ) - Patient Data Vitals - most recent: Last Vital Signs Temp 37.1 C 07/21/16 03:00 Pulse 68 07/21/16 03:00 Resp 20 07/21/16 03:00 BP 125/61 07/21/16 03:00 Pulse Ox 94 L 07/21/16 03:00 Weight - most recent: 118.025 kg I&O - last 24 hours: Intake & Output 07/20/16 07/21/16 07/21/16 22:59 06:59 14:59 Intake Total 100 1100 Output Total 300 700 Balance -200 400 Lab Results last 24 hrs: Laboratory Results - last 24 hr 07/20/16 07/20/16 07/20/16 Range/Units 18:48 20:51 20:51 WBC 16.96 H (4.0-11.0) K/uL RBC 4.76 (4.50-5.90) M/uL Hgb 14.5 (13.0-17.0) g/dL Hct 42.5 (38.0-50.0) % MCV 89.3 (80.0-98.0) fL MCH 30.5 (27.0-32.0) pg MCHC 34.1 (31.0-37.0) g/dL RDW Std Deviation 40.2 (28.0-62.0) fl RDW Coeff of Aliza 13 (11.0-15.0) % Plt Count 220 (150-400) K/uL MPV 10.30 (7.40-12.00) fL Neut % (Auto) 79.3 (48.0-80.0) % Lymph % (Auto) 15.0 L (16.0-40.0) % Mckean % (Auto) 5.5 (0.0-15.0) % Eos % (Auto) 0.1 (0.0-7.0) % Baso % (Auto) 0.1 (0.0-1.5) % Neut # (Auto) 13.4 H (1.4-5.7) K/uL Lymph # (Auto) 2.6 H (0.6-2.4) K/uL Mckean # (Auto) 0.9 H (0.0-0.8) K/uL Eos # (Auto) 0.0 (0.0-0.7) K/uL Baso # (Auto) 0.0 (0.0-0.1) K/uL Nucleated RBC % 0.0 /100WBC Nucleated RBCs # 0 K/uL Lactate 1.6 (0.20-2.00) mmol/L Sodium (136-146) mmol/L Potassium (3.5-5.1) mmol/L Chloride (98-110) mmol/L Carbon Dioxide (21-31) mmol/L BUN (6.0-23.0) mg/dL Creatinine (0.6-1.5) mg/dL Est Cr Clr Drug Dosing mL/min Estimated GFR (MDRD) ml/min Glucose (60-110) mg/dL POC Glucose 180 H (60-110) mg/dL Calcium (8.8-10.8) mg/dL Total Bilirubin (0.1-1.5) mg/dL AST (5-40) IU/L ALT (8-54) IU/L Alkaline Phosphatase (40-150) Total Protein (6.0-8.0) g/dL Albumin (3.5-5.0) g/dL Globulin (2.0-3.5) g/dL Albumin/Globulin Ratio (1.3-2.8) 07/21/16 07/21/16 07/21/16 Range/Units 00:16 03:10 03:10 WBC (4.0-11.0) K/uL RBC (4.50-5.90) M/uL Hgb (13.0-17.0) g/dL Hct (38.0-50.0) % MCV (80.0-98.0) fL MCH (27.0-32.0) pg MCHC (31.0-37.0) g/dL RDW Std Deviation (28.0-62.0) fl RDW Coeff of Aliza (11.0-15.0) % Plt Count (150-400) K/uL MPV (7.40-12.00) fL Neut % (Auto) (48.0-80.0) % Lymph % (Auto) (16.0-40.0) % Mckean % (Auto) (0.0-15.0) % Eos % (Auto) (0.0-7.0) % Baso % (Auto) (0.0-1.5) % Neut # (Auto) (1.4-5.7) K/uL Lymph # (Auto) (0.6-2.4) K/uL Mckean # (Auto) (0.0-0.8) K/uL Eos # (Auto) (0.0-0.7) K/uL Baso # (Auto) (0.0-0.1) K/uL Nucleated RBC % /100WBC Nucleated RBCs # K/uL Lactate 1.0 (0.20-2.00) mmol/L Sodium 139 (136-146) mmol/L Potassium 3.7 (3.5-5.1) mmol/L Chloride 106 (98-110) mmol/L Carbon Dioxide 24 (21-31) mmol/L BUN 15 (6.0-23.0) mg/dL Creatinine 0.8 (0.6-1.5) mg/dL Est Cr Clr Drug Dosing 116.35 mL/min Estimated GFR (MDRD) > 60.0 ml/min Glucose 175 H (60-110) mg/dL POC Glucose 141 H (60-110) mg/dL Calcium 7.8 L (8.8-10.8) mg/dL Total Bilirubin 0.8 (0.1-1.5) mg/dL AST 22 (5-40) IU/L ALT 24 (8-54) IU/L Alkaline Phosphatase 58 (40-150) Total Protein 5.9 L (6.0-8.0) g/dL Albumin 3.7 (3.5-5.0) g/dL Globulin 2.2 (2.0-3.5) g/dL Albumin/Globulin Ratio 1.7 (1.3-2.8) 07/21/16 07/21/16 Range/Units 03:10 05:42 WBC 15.54 H (4.0-11.0) K/uL RBC 4.58 (4.50-5.90) M/uL Hgb 13.8 (13.0-17.0) g/dL Hct 40.9 (38.0-50.0) % MCV 89.3 (80.0-98.0) fL MCH 30.1 (27.0-32.0) pg MCHC 33.7 (31.0-37.0) g/dL RDW Std Deviation 40.7 (28.0-62.0) fl RDW Coeff of Aliza 13 (11.0-15.0) % Plt Count 209 (150-400) K/uL MPV 10.20 (7.40-12.00) fL Neut % (Auto) 74.3 (48.0-80.0) % Lymph % (Auto) 18.0 (16.0-40.0) % Mckean % (Auto) 7.4 (0.0-15.0) % Eos % (Auto) 0.1 (0.0-7.0) % Baso % (Auto) 0.2 (0.0-1.5) % Neut # (Auto) 11.6 H (1.4-5.7) K/uL Lymph # (Auto) 2.8 H (0.6-2.4) K/uL Mckean # (Auto) 1.2 H (0.0-0.8) K/uL Eos # (Auto) 0.0 (0.0-0.7) K/uL Baso # (Auto) 0.0 (0.0-0.1) K/uL Nucleated RBC % 0.0 /100WBC Nucleated RBCs # 0 K/uL Lactate (0.20-2.00) mmol/L Sodium (136-146) mmol/L Potassium (3.5-5.1) mmol/L Chloride (98-110) mmol/L Carbon Dioxide (21-31) mmol/L BUN (6.0-23.0) mg/dL Creatinine (0.6-1.5) mg/dL Est Cr Clr Drug Dosing mL/min Estimated GFR (MDRD) ml/min Glucose (60-110) mg/dL POC Glucose 180 H (60-110) mg/dL Calcium (8.8-10.8) mg/dL Total Bilirubin (0.1-1.5) mg/dL AST (5-40) IU/L ALT (8-54) IU/L Alkaline Phosphatase (40-150) Total Protein (6.0-8.0) g/dL Albumin (3.5-5.0) g/dL Globulin (2.0-3.5) g/dL Albumin/Globulin Ratio (1.3-2.8) Med Orders - Current: Current Medications Acetaminophen (Tylenol) 650 mg PO Q6H PRN PRN Reason: Headache Hydromorphone HCl (Dilaudid Sales Department Supervisor 6 Mg In Ns 30 Ml) 6 mg IV ASDIRECTED PRN; Protocol PRN Reason: Abdominal Pain Last Admin: 07/20/16 18:21 Dose: 6 mg Sodium Chloride (Normal Saline) 1,000 mls @ 175 mls/hr IV ASDIRECTED [facility] Last Admin: 07/21/16 00:21 Dose: 100 mls/hr Piperacillin Sod/Tazobactam (Sod 4.5 gm/ Sodium Chloride) 100 mls @ 100 mls/hr IV Q6H [facility] Last Admin: 07/21/16 03:21 Dose: 100 mls/hr Insulin Aspart (Novolog) 0 unit SUBCUT Q6H WOJCIECH PRN Reason: Protocol Last Admin: 07/21/16 06:04 Dose: 1 unit Ondansetron HCl (Zofran) 4 mg IVPUSH Q4H PRN PRN Reason: Nausea Promethazine HCl (Phenergan) 12.5 mg IM Q6H PRN PRN Reason: Nausea/Vomiting Last Admin: 07/20/16 18:16 Dose: 12.5 mg Discontinued Medications Hydromorphone HCl (Dilaudid) 1 mg IM ONETIME ONE Stop: 07/20/16 15:46 Last Admin: 07/20/16 15:51 Dose: 1 mg Hydromorphone HCl (Dilaudid) 0.5 mg IVPUSH ONETIME ONE Stop: 07/20/16 16:43 Last Admin: 07/20/16 16:53 Dose: 0.5 mg Hyoscyamine (Hyomax-Sl) 0.125 mg SL ONETIME ONE Stop: 07/20/16 12:20 Last Admin: 07/20/16 12:32 Dose: 0.125 mg Sodium Chloride (Normal Saline) 1,000 mls @ 999 mls/hr IV STAT ONE Stop: 07/20/16 12:43 Last Admin: 07/20/16 11:51 Dose: 999 mls/hr Piperacillin Sod/Tazobactam (Sod 4.5 gm/ Sodium Chloride) 100 mls @ 100 mls/hr IV ONETIME ONE Stop: 07/20/16 16:51 Last Admin: 07/20/16 16:14 Dose: 100 mls/hr Sodium Chloride (Normal Saline) 1,000 mls @ 999 mls/hr IV STAT ONE Stop: 07/20/16 16:52 Last Infusion: 07/20/16 16:14 Dose: 100 mls/hr Iopamidol (Isovue-370 (76%)) 100 ml IVPUSH ONETIME STA Stop: 07/20/16 16:05 Last Admin: 07/20/16 16:06 Dose: 100 ml Ondansetron HCl (Zofran) 4 mg IVPUSH ONETIME ONE Stop: 07/20/16 11:44 Last Admin: 07/20/16 11:52 Dose: 4 mg Ondansetron HCl (Zofran) 4 mg IVPUSH ONETIME ONE Stop: 07/20/16 12:18 Last Admin: 07/20/16 12:20 Dose: 4 mg Ondansetron HCl (Zofran) 4 mg IVPUSH ONETIME ONE Stop: 07/20/16 15:46 Last Admin: 07/20/16 15:52 Dose: 4 mg - Exam Quality Assessment: supplemental oxygen General: alert, oriented HEENT: Pupils equal, Pupils reactive Neck: supple Lungs: Clear to auscultation, Normal respiratory effort Cardiovascular: Regular Rate, Regular Rhythm Abdomen: soft, no tenderness, no distension Extremities: no edema - Problem List & Annotations (1) Acute ischemic colitis SNOMED Code(s): 23436887 Code(s): K55.039 - ACUTE ISCHEMIA OF LARGE INTESTINE, EXTENT UNSPECIFIED Status: Acute Current Visit: Yes - Problem List Review Problem List Initiated/Reviewed/Updated: Yes - My Orders Last 24 Hours: My Active Orders 07/21/16 07:53 Acetaminophen [Tylenol] 650 mg PO Q6H PRN - Plan Plan:: Pain: 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 LFTs this am are normal so I ordered tylenol for fever and pain. 650mg q 6hr prn Colitis: Patient still c/o abdominal pain but physical exam is benign. Ok to allow patient to have ice chips and po medications. Will continue to check on patient throughout the day. If his exam is same or improves this afternoon will allow him to have a clear diet. Encourage patient to be out of bed today at least twice. Continue IV zosyn for today until WBC is within normal range. Then we can switch him to po cipro and flagyl for two weeks. Patient will likely stay for one more day for close monitoring. Ok to check daily labs at this point. Appreciate the excellent cares of the medicine team. Please call with any questions or concerns.
[2016-07-21] MEDS: Acetaminophen 325 MG Tab PO PRN ×3 (08:06→22:18)
--- NOTE | 2016-07-21 11:14 | CT ---
EXAM DATE: 07/20/16 PATIENT'S AGE: 50 Patient: JOAN GAY Facility: [place], [place] Site . Site : [id number] Study: CT Abdomen/Pelvis [id number] 1:54:57 PM Ordering Physician: Doctor High Final Report: INDICATION: Abdominal pain. Technique: CT of the abdomen and pelvis performed after IV injection of 100 mL of Isovue- 370. Findings: Moderate elevation and convex eventration right hemidiaphragm. Right total hip arthroplasty. Moderate degenerative arthritis left hip. Marked diffuse fatty infiltration of liver with focal fatty sparing adjacent to the gallbladder. Multiple small to moderate-sized cysts in both kidneys. No filling defects or lesions either intrarenal collecting system, ureter or the urinary bladder on the excretory phase imaging. Old left rib fractures. Focal sclerosis and lucency as well as fragmentation involving the superior left femoral head consistent with avascular necrosis. Mild to moderately enlarged lymph nodes in the portal caval, celiac axis and nadira hepatis region with 1 celiac axis lymph node measuring 2.2 cm on image 56. This mild adenopathy is nonspecific. Otherwise there are small lymph nodes in the abdomen pelvis which predominantly are normal in size to upper limits of normal. Additional mildly enlarged distal left external iliac chain pelvic lymph node on image 152. Moderately prominent segmental circumferential low-density abnormal wall thickening is seen involving the colon from the mid to distal transverse colon to the splenic flexure/upper descending colon. Mild soft tissue stranding about this segment of the colon. Findings consistent with an prominent segmental acute colitis. Given the segmental nature of this colitis, a vascular etiology such as ischemic colitis cannot be excluded. Infectious or inflammatory etiologies for this colitis also remain considerations although infectious colitis is usually not so segmental. Remainder the colon is within normal limits. Appendix is normal. Remainder. Impression: 1. Marked circumferential low abnormal low-density wall thickening involving the colon from the mid to distal transverse colon to the splenic flexure/upper descending colon with surrounding inflammatory stranding consistent with an acute colitis. Given that this is segmental, I cannot exclude ischemic colitis. Infectious or inflammatory colitis would remain a consideration although infectious colitis is usually not segmental. Clinical laboratory correlation recommended. 2. Marked diffuse fatty infiltration of liver. 3. Mild adenopathy in the right mid and upper abdomen nonspecific. Single mildly enlarged left distal external iliac chain pelvic lymph node nonspecific. 4. Avascular necrosis involving the left femoral head with moderate degenerative arthritis left hip. Other findings as above. Dictated by Kwasi Mir MD @ Jul 20 2016 2:38PM (Electronic Signature) Report Signed by Proxy and Original Signed Document filed in the Medical Record. MTDD
--- NOTE | 2016-07-21 13:44 | PCM.PN ---
- General Info Date of Service: 07/21/16 Admission Dx/Problem (Free Text): Acute ischemic colitis of splenic flexure Subjective Update: Abdominal pain improved since admission with [employer] dilaudid, IVF, NPO and ABX. Is urinating but no BM. Continues on ABX (Zosyn). Is being followed and assessed closely by Dr. Coe, General surgery. Denies CP and SOB. Functional Status: Reports: pain controlled, urinating - Review of Systems General: Reports: No Symptoms HEENT: Reports: no symptoms Pulmonary: Reports: no symptoms Cardiovascular: Reports: No Symptoms Gastrointestinal: Reports: Abdominal pain (LUQ), Decreased appetite Genitourinary: Reports: no symptoms Musculoskeletal: Reports: no symptoms Skin: Reports: no symptoms Neurological: Reports: No Symptoms Psychiatric: Reports: no symptoms - Patient Data Vitals - most recent: Last Vital Signs Temp 98.2 F 07/21/16 12:24 Pulse 87 07/21/16 12:24 Resp 20 07/21/16 12:24 BP 138/86 07/21/16 12:24 Pulse Ox 94 L 07/21/16 12:24 Weight - most recent: 260 lb 3.2 oz I&O - last 24 hours: Intake & Output 07/20/16 07/21/16 07/21/16 22:59 06:59 14:59 Intake Total 100 1100 Output Total 300 700 Balance -200 400 Lab Results last 24 hrs: Laboratory Results - last 24 hr 07/20/16 07/20/16 07/20/16 Range/Units 18:48 20:51 20:51 WBC 16.96 H (4.0-11.0) K/uL RBC 4.76 (4.50-5.90) M/uL Hgb 14.5 (13.0-17.0) g/dL Hct 42.5 (38.0-50.0) % MCV 89.3 (80.0-98.0) fL MCH 30.5 (27.0-32.0) pg MCHC 34.1 (31.0-37.0) g/dL RDW Std Deviation 40.2 (28.0-62.0) fl RDW Coeff of Aliza 13 (11.0-15.0) % Plt Count 220 (150-400) K/uL MPV 10.30 (7.40-12.00) fL Neut % (Auto) 79.3 (48.0-80.0) % Lymph % (Auto) 15.0 L (16.0-40.0) % Frio % (Auto) 5.5 (0.0-15.0) % Eos % (Auto) 0.1 (0.0-7.0) % Baso % (Auto) 0.1 (0.0-1.5) % Neut # (Auto) 13.4 H (1.4-5.7) K/uL Lymph # (Auto) 2.6 H (0.6-2.4) K/uL Frio # (Auto) 0.9 H (0.0-0.8) K/uL Eos # (Auto) 0.0 (0.0-0.7) K/uL Baso # (Auto) 0.0 (0.0-0.1) K/uL Nucleated RBC % 0.0 /100WBC Nucleated RBCs # 0 K/uL Lactate 1.6 (0.20-2.00) mmol/L Sodium (136-146) mmol/L Potassium (3.5-5.1) mmol/L Chloride (98-110) mmol/L Carbon Dioxide (21-31) mmol/L BUN (6.0-23.0) mg/dL Creatinine (0.6-1.5) mg/dL Est Cr Clr Drug Dosing mL/min Estimated GFR (MDRD) ml/min Glucose (60-110) mg/dL POC Glucose 180 H (60-110) mg/dL Calcium (8.8-10.8) mg/dL Total Bilirubin (0.1-1.5) mg/dL AST (5-40) IU/L ALT (8-54) IU/L Alkaline Phosphatase (40-150) Total Protein (6.0-8.0) g/dL Albumin (3.5-5.0) g/dL Globulin (2.0-3.5) g/dL Albumin/Globulin Ratio (1.3-2.8) 07/21/16 07/21/16 07/21/16 Range/Units 00:16 03:10 03:10 WBC (4.0-11.0) K/uL RBC (4.50-5.90) M/uL Hgb (13.0-17.0) g/dL Hct (38.0-50.0) % MCV (80.0-98.0) fL MCH (27.0-32.0) pg MCHC (31.0-37.0) g/dL RDW Std Deviation (28.0-62.0) fl RDW Coeff of Aliza (11.0-15.0) % Plt Count (150-400) K/uL MPV (7.40-12.00) fL Neut % (Auto) (48.0-80.0) % Lymph % (Auto) (16.0-40.0) % Frio % (Auto) (0.0-15.0) % Eos % (Auto) (0.0-7.0) % Baso % (Auto) (0.0-1.5) % Neut # (Auto) (1.4-5.7) K/uL Lymph # (Auto) (0.6-2.4) K/uL Frio # (Auto) (0.0-0.8) K/uL Eos # (Auto) (0.0-0.7) K/uL Baso # (Auto) (0.0-0.1) K/uL Nucleated RBC % /100WBC Nucleated RBCs # K/uL Lactate 1.0 (0.20-2.00) mmol/L Sodium 139 (136-146) mmol/L Potassium 3.7 (3.5-5.1) mmol/L Chloride 106 (98-110) mmol/L Carbon Dioxide 24 (21-31) mmol/L BUN 15 (6.0-23.0) mg/dL Creatinine 0.8 (0.6-1.5) mg/dL Est Cr Clr Drug Dosing 116.35 mL/min Estimated GFR (MDRD) > 60.0 ml/min Glucose 175 H (60-110) mg/dL POC Glucose 141 H (60-110) mg/dL Calcium 7.8 L (8.8-10.8) mg/dL Total Bilirubin 0.8 (0.1-1.5) mg/dL AST 22 (5-40) IU/L ALT 24 (8-54) IU/L Alkaline Phosphatase 58 (40-150) Total Protein 5.9 L (6.0-8.0) g/dL Albumin 3.7 (3.5-5.0) g/dL Globulin 2.2 (2.0-3.5) g/dL Albumin/Globulin Ratio 1.7 (1.3-2.8) 07/21/16 07/21/16 07/21/16 Range/Units 03:10 05:42 09:02 WBC 15.54 H 13.80 H (4.0-11.0) K/uL RBC 4.58 4.40 L (4.50-5.90) M/uL Hgb 13.8 13.4 (13.0-17.0) g/dL Hct 40.9 39.5 (38.0-50.0) % MCV 89.3 89.8 (80.0-98.0) fL MCH 30.1 30.5 (27.0-32.0) pg MCHC 33.7 33.9 (31.0-37.0) g/dL RDW Std Deviation 40.7 41.5 (28.0-62.0) fl RDW Coeff of Aliza 13 13 (11.0-15.0) % Plt Count 209 191 (150-400) K/uL MPV 10.20 10.20 (7.40-12.00) fL Neut % (Auto) 74.3 74.0 (48.0-80.0) % Lymph % (Auto) 18.0 16.7 (16.0-40.0) % Frio % (Auto) 7.4 9.0 (0.0-15.0) % Eos % (Auto) 0.1 0.2 (0.0-7.0) % Baso % (Auto) 0.2 0.1 (0.0-1.5) % Neut # (Auto) 11.6 H 10.2 H (1.4-5.7) K/uL Lymph # (Auto) 2.8 H 2.3 (0.6-2.4) K/uL Frio # (Auto) 1.2 H 1.2 H (0.0-0.8) K/uL Eos # (Auto) 0.0 0.0 (0.0-0.7) K/uL Baso # (Auto) 0.0 0.0 (0.0-0.1) K/uL Nucleated RBC % 0.0 0.0 /100WBC Nucleated RBCs # 0 0 K/uL Lactate (0.20-2.00) mmol/L Sodium (136-146) mmol/L Potassium (3.5-5.1) mmol/L Chloride (98-110) mmol/L Carbon Dioxide (21-31) mmol/L BUN (6.0-23.0) mg/dL Creatinine (0.6-1.5) mg/dL Est Cr Clr Drug Dosing mL/min Estimated GFR (MDRD) ml/min Glucose (60-110) mg/dL POC Glucose 180 H (60-110) mg/dL Calcium (8.8-10.8) mg/dL Total Bilirubin (0.1-1.5) mg/dL AST (5-40) IU/L ALT (8-54) IU/L Alkaline Phosphatase (40-150) Total Protein (6.0-8.0) g/dL Albumin (3.5-5.0) g/dL Globulin (2.0-3.5) g/dL Albumin/Globulin Ratio (1.3-2.8) Med Orders - Current: Current Medications Acetaminophen (Tylenol) 650 mg PO Q6H PRN PRN Reason: Headache Last Admin: 07/21/16 08:06 Dose: 650 mg Hydromorphone HCl (Dilaudid [place] 6 Mg In Ns 30 Ml) 6 mg IV ASDIRECTED PRN; Protocol PRN Reason: Abdominal Pain Last Admin: 07/20/16 18:21 Dose: 6 mg Sodium Chloride (Normal Saline) 1,000 mls @ 175 mls/hr IV ASDIRECTED WOJCIECH Last Admin: 07/21/16 07:56 Dose: 100 mls/hr Piperacillin Sod/Tazobactam (Sod 4.5 gm/ Sodium Chloride) 100 mls @ 100 mls/hr IV Q6H WOJCIECH Last Admin: 07/21/16 09:58 Dose: 100 mls/hr Insulin Aspart (Novolog) 0 unit SUBCUT Q6H WOJCIECH PRN Reason: Protocol Last Admin: 07/21/16 12:26 Dose: 1 unit Ondansetron HCl (Zofran) 4 mg IVPUSH Q4H PRN PRN Reason: Nausea Promethazine HCl (Phenergan) 12.5 mg IM Q6H PRN PRN Reason: Nausea/Vomiting Last Admin: 07/20/16 18:16 Dose: 12.5 mg Discontinued Medications Hydromorphone HCl (Dilaudid) 1 mg IM ONETIME ONE Stop: 07/20/16 15:46 Last Admin: 07/20/16 15:51 Dose: 1 mg Hydromorphone HCl (Dilaudid) 0.5 mg IVPUSH ONETIME ONE Stop: 07/20/16 16:43 Last Admin: 07/20/16 16:53 Dose: 0.5 mg Hyoscyamine (Hyomax-Sl) 0.125 mg SL ONETIME ONE Stop: 07/20/16 12:20 Last Admin: 07/20/16 12:32 Dose: 0.125 mg Sodium Chloride (Normal Saline) 1,000 mls @ 999 mls/hr IV STAT ONE Stop: 07/20/16 12:43 Last Admin: 07/20/16 11:51 Dose: 999 mls/hr Piperacillin Sod/Tazobactam (Sod 4.5 gm/ Sodium Chloride) 100 mls @ 100 mls/hr IV ONETIME ONE Stop: 07/20/16 16:51 Last Admin: 07/20/16 16:14 Dose: 100 mls/hr Sodium Chloride (Normal Saline) 1,000 mls @ 999 mls/hr IV STAT ONE Stop: 07/20/16 16:52 Last Infusion: 07/20/16 16:14 Dose: 100 mls/hr Iopamidol (Isovue-370 (76%)) 100 ml IVPUSH ONETIME STA Stop: 07/20/16 16:05 Last Admin: 07/20/16 16:06 Dose: 100 ml Ondansetron HCl (Zofran) 4 mg IVPUSH ONETIME ONE Stop: 07/20/16 11:44 Last Admin: 07/20/16 11:52 Dose: 4 mg Ondansetron HCl (Zofran) 4 mg IVPUSH ONETIME ONE Stop: 07/20/16 12:18 Last Admin: 07/20/16 12:20 Dose: 4 mg Ondansetron HCl (Zofran) 4 mg IVPUSH ONETIME ONE Stop: 07/20/16 15:46 Last Admin: 07/20/16 15:52 Dose: 4 mg - Exam Quality Assessment: DVT prophylaxis (SCD's). No: supplemental oxygen, central line/PICC, urine catheter General: alert, oriented Lungs: Clear to auscultation, Normal respiratory effort Cardiovascular: Regular Rate, Regular Rhythm Abdomen: bowel sounds present, soft, no distension, tenderness (LUQ/LLQ). No: rebound, guarding, distension Extremities: no edema, normal pulses Peripheral Pulses: 2+: radial (L), radial (R) Skin: warm, dry, intact Neurological: no new focal deficit Psy/Mental Status: alert, normal affect, normal mood - Problem List & Annotations (1) Acute ischemic colitis SNOMED Code(s): 19185327 Code(s): K55.039 - ACUTE ISCHEMIA OF LARGE INTESTINE, EXTENT UNSPECIFIED Status: Acute Current Visit: Yes - Problem List Review Problem List Initiated/Reviewed/Updated: Yes - Plan Plan:: 1. Acute ischemic colitis: -continue to follow the recommendations of Dr. Coe, general surgery. -Continue [employer] dilaudid. -Tylenol for fever and pain -ice chips and PO medications. Will advance as tolerated. -Zosyn. Continue to monitor WBC. Once normal, switch to PO Cipro and flagyl for 2 weeks.
[2016-07-21] MEDS: HYDROmorphone/Normal Saline 6 MG/30 ML PCA Vial IV PRN (16:51)
[2016-07-22] MEDS ORDERED: HYDROmorphone 1 MG/ML Syringe IVPUSH PRN (00:02)
[2016-07-22] MEDS: Insulin Aspart 100 Units/ML 3 ML Pen SUBCUT SCH ×5 (00:09→21:29)
[2016-07-22] MEDS: Sodium Chloride 0.9% 1,000 ML IV SCH ×3 (02:48→18:00)
[2016-07-22] MEDS: Piperacillin/Tazobactam 4.5 GM in Sodium Chloride 0.9% 100 ML IV SCH (03:15)
[2016-07-22 05:51] LABS: CHLORIDE,CL 109 mmol/L (98-110); SODIUM,NA 140 mmol/L (136-146)
[2016-07-22] MEDS ORDERED: Insulin Aspart 100 Units/ML 3 ML Pen SUBCUT SCH (07:30)
[2016-07-22] MEDS: HYDROmorphone/Normal Saline 6 MG/30 ML PCA Vial IV PRN ×2 (08:04→21:26)
--- NOTE | 2016-07-22 08:40 | PCM.PN ---
- General Info Date of Service: 07/22/16 Admission Dx/Problem (Free Text): Acute ischemic colitis Subjective Update: Patient advanced to clear liquid diet yesterday. Overnight he had a large bloody bowel movement. Afterwards his abdominal pain was worse. He was given a bolus of IV pain medication which helped. He denies fevers, chills, vomiting. Has some nausea when getting out of bed this morning. Had another bowel movement this morning and did well with that. He feels like he ate too much last evening. - Review of Systems General: Reports: No Symptoms Pulmonary: Reports: no symptoms Cardiovascular: Reports: No Symptoms Gastrointestinal: Reports: Abdominal pain - Patient Data Vitals - most recent: Last Vital Signs Temp 37.1 C 07/22/16 04:00 Pulse 85 07/22/16 04:00 Resp 14 07/22/16 04:00 BP 141/71 H 07/22/16 04:00 Pulse Ox 97 07/22/16 04:00 Weight - most recent: 118.025 kg I&O - last 24 hours: Intake & Output 07/21/16 07/22/16 07/22/16 22:59 06:59 14:59 Intake Total 2020 1500 Output Total 1050 1650 Balance 971 -150 Lab Results last 24 hrs: Laboratory Results - last 24 hr 07/21/16 07/21/16 07/21/16 Range/Units 09:02 12:21 14:58 WBC 13.80 H 13.92 H (4.0-11.0) K/uL RBC 4.40 L 4.38 L (4.50-5.90) M/uL Hgb 13.4 13.4 (13.0-17.0) g/dL Hct 39.5 39.7 (38.0-50.0) % MCV 89.8 90.6 (80.0-98.0) fL MCH 30.5 30.6 (27.0-32.0) pg MCHC 33.9 33.8 (31.0-37.0) g/dL RDW Std Deviation 41.5 42.1 (28.0-62.0) fl RDW Coeff of Aliza 13 13 (11.0-15.0) % Plt Count 191 188 (150-400) K/uL MPV 10.20 9.80 (7.40-12.00) fL Neut % (Auto) 74.0 73.1 (48.0-80.0) % Lymph % (Auto) 16.7 18.8 (16.0-40.0) % Citrus % (Auto) 9.0 7.6 (0.0-15.0) % Eos % (Auto) 0.2 0.4 (0.0-7.0) % Baso % (Auto) 0.1 0.1 (0.0-1.5) % Neut # (Auto) 10.2 H 10.2 H (1.4-5.7) K/uL Lymph # (Auto) 2.3 2.6 H (0.6-2.4) K/uL Citrus # (Auto) 1.2 H 1.1 H (0.0-0.8) K/uL Eos # (Auto) 0.0 0.1 (0.0-0.7) K/uL Baso # (Auto) 0.0 0.0 (0.0-0.1) K/uL Nucleated RBC % 0.0 0.0 /100WBC Nucleated RBCs # 0 0 K/uL Sodium (136-146) mmol/L Potassium (3.5-5.1) mmol/L Chloride (98-110) mmol/L Carbon Dioxide (21-31) mmol/L BUN (6.0-23.0) mg/dL Creatinine (0.6-1.5) mg/dL Est Cr Clr Drug Dosing mL/min Estimated GFR (MDRD) ml/min Glucose (60-110) mg/dL POC Glucose 174 H (60-110) mg/dL Calcium (8.8-10.8) mg/dL 07/21/16 07/21/16 07/21/16 Range/Units 18:32 21:05 23:24 WBC 13.80 H 14.02 H (4.0-11.0) K/uL RBC 4.44 L 4.38 L (4.50-5.90) M/uL Hgb 13.4 13.1 (13.0-17.0) g/dL Hct 40.4 39.8 (38.0-50.0) % MCV 91.0 90.9 (80.0-98.0) fL MCH 30.2 29.9 (27.0-32.0) pg MCHC 33.2 32.9 (31.0-37.0) g/dL RDW Std Deviation 42.3 42.4 (28.0-62.0) fl RDW Coeff of Aliza 13 13 (11.0-15.0) % Plt Count 186 184 (150-400) K/uL MPV 10.00 10.00 (7.40-12.00) fL Neut % (Auto) 70.6 71.3 (48.0-80.0) % Lymph % (Auto) 20.3 19.1 (16.0-40.0) % Citrus % (Auto) 8.3 8.8 (0.0-15.0) % Eos % (Auto) 0.6 0.6 (0.0-7.0) % Baso % (Auto) 0.2 0.2 (0.0-1.5) % Neut # (Auto) 9.8 H 10.0 H (1.4-5.7) K/uL Lymph # (Auto) 2.8 H 2.7 H (0.6-2.4) K/uL Citrus # (Auto) 1.1 H 1.2 H (0.0-0.8) K/uL Eos # (Auto) 0.1 0.1 (0.0-0.7) K/uL Baso # (Auto) 0.0 0.0 (0.0-0.1) K/uL Nucleated RBC % 0.0 0.0 /100WBC Nucleated RBCs # 0 0 K/uL Sodium (136-146) mmol/L Potassium (3.5-5.1) mmol/L Chloride (98-110) mmol/L Carbon Dioxide (21-31) mmol/L BUN (6.0-23.0) mg/dL Creatinine (0.6-1.5) mg/dL Est Cr Clr Drug Dosing mL/min Estimated GFR (MDRD) ml/min Glucose (60-110) mg/dL POC Glucose 186 H (60-110) mg/dL Calcium (8.8-10.8) mg/dL 07/21/16 07/22/16 07/22/16 Range/Units 23:46 04:59 04:59 WBC 14.49 H (4.0-11.0) K/uL RBC 4.21 L (4.50-5.90) M/uL Hgb 13.0 (13.0-17.0) g/dL Hct 38.2 (38.0-50.0) % MCV 90.7 (80.0-98.0) fL MCH 30.9 (27.0-32.0) pg MCHC 34.0 (31.0-37.0) g/dL RDW Std Deviation 42.2 (28.0-62.0) fl RDW Coeff of Aliza 13 (11.0-15.0) % Plt Count 189 (150-400) K/uL MPV 10.30 (7.40-12.00) fL Neut % (Auto) 74.5 (48.0-80.0) % Lymph % (Auto) 17.4 (16.0-40.0) % Citrus % (Auto) 7.6 (0.0-15.0) % Eos % (Auto) 0.3 (0.0-7.0) % Baso % (Auto) 0.2 (0.0-1.5) % Neut # (Auto) 10.8 H (1.4-5.7) K/uL Lymph # (Auto) 2.5 H (0.6-2.4) K/uL Citrus # (Auto) 1.1 H (0.0-0.8) K/uL Eos # (Auto) 0.1 (0.0-0.7) K/uL Baso # (Auto) 0.0 (0.0-0.1) K/uL Nucleated RBC % 0.0 /100WBC Nucleated RBCs # 0 K/uL Sodium 140 (136-146) mmol/L Potassium 3.8 (3.5-5.1) mmol/L Chloride 109 (98-110) mmol/L Carbon Dioxide 22 (21-31) mmol/L BUN 10 (6.0-23.0) mg/dL Creatinine 0.8 (0.6-1.5) mg/dL Est Cr Clr Drug Dosing 116.35 mL/min Estimated GFR (MDRD) > 60.0 ml/min Glucose 139 H (60-110) mg/dL POC Glucose 127 H (60-110) mg/dL Calcium 7.4 L (8.8-10.8) mg/dL Ray Results last 24 hrs: Microbiology 07/21/16 22:58 Clostridium difficile Toxin A&B (M) - Final Stool / Feces Negative for C.Diff Toxin/AG 07/21/16 22:58 Campylobacter Antigen Assay - Final Stool / Feces Positive Campylobacter Ag 07/21/16 22:58 Stool for WBCs - Final Stool / Feces POSITIVE FOR WBC'S Med Orders - Current: Current Medications Acetaminophen (Tylenol) 650 mg PO Q6H PRN PRN Reason: Headache Last Admin: 07/21/16 22:18 Dose: 650 mg Hydromorphone HCl (Dilaudid [place] 6 Mg In Ns 30 Ml) 6 mg IV ASDIRECTED PRN; Protocol PRN Reason: Abdominal Pain Last Admin: 07/22/16 08:04 Dose: 6 mg Hydromorphone HCl (Dilaudid) 1 mg IVPUSH Q2H PRN PRN Reason: Abdominal Pain Last Admin: 07/22/16 00:19 Dose: 1 mg Sodium Chloride (Normal Saline) 1,000 mls @ 175 mls/hr IV ASDIRECTED WOJCIECH Last Admin: 07/22/16 02:48 Dose: 100 mls/hr Piperacillin Sod/Tazobactam (Sod 4.5 gm/ Sodium Chloride) 100 mls @ 100 mls/hr IV Q6H [facility] Last Admin: 07/22/16 03:15 Dose: 100 mls/hr Insulin Aspart (Novolog) 0 unit SUBCUT Q6H WOJCIECH PRN Reason: Protocol Last Admin: 07/22/16 05:50 Dose: Not Given Ondansetron HCl (Zofran) 4 mg IVPUSH Q4H PRN PRN Reason: Nausea Last Admin: 07/21/16 22:48 Dose: 4 mg Promethazine HCl (Phenergan) 12.5 mg IM Q6H PRN PRN Reason: Nausea/Vomiting Last Admin: 07/20/16 18:16 Dose: 12.5 mg Discontinued Medications Hydromorphone HCl (Dilaudid) 1 mg IM ONETIME ONE Stop: 07/20/16 15:46 Last Admin: 07/20/16 15:51 Dose: 1 mg Hydromorphone HCl (Dilaudid) 0.5 mg IVPUSH ONETIME ONE Stop: 07/20/16 16:43 Last Admin: 07/20/16 16:53 Dose: 0.5 mg Hyoscyamine (Hyomax-Sl) 0.125 mg SL ONETIME ONE Stop: 07/20/16 12:20 Last Admin: 07/20/16 12:32 Dose: 0.125 mg Sodium Chloride (Normal Saline) 1,000 mls @ 999 mls/hr IV STAT ONE Stop: 07/20/16 12:43 Last Admin: 07/20/16 11:51 Dose: 999 mls/hr Piperacillin Sod/Tazobactam (Sod 4.5 gm/ Sodium Chloride) 100 mls @ 100 mls/hr IV ONETIME ONE Stop: 07/20/16 16:51 Last Admin: 07/20/16 16:14 Dose: 100 mls/hr Sodium Chloride (Normal Saline) 1,000 mls @ 999 mls/hr IV STAT ONE Stop: 07/20/16 16:52 Last Infusion: 07/20/16 16:14 Dose: 100 mls/hr Insulin Aspart (Novolog) 0 unit SUBCUT Q6H WOJCIECH PRN Reason: Protocol Last Admin: 07/21/16 18:33 Dose: 1 unit Insulin Aspart (Novolog) 0 unit SUBCUT TIDAC WOJCIECH PRN Reason: Protocol Iopamidol (Isovue-370 (76%)) 100 ml IVPUSH ONETIME STA Stop: 07/20/16 16:05 Last Admin: 07/20/16 16:06 Dose: 100 ml Ondansetron HCl (Zofran) 4 mg IVPUSH ONETIME ONE Stop: 07/20/16 11:44 Last Admin: 07/20/16 11:52 Dose: 4 mg Ondansetron HCl (Zofran) 4 mg IVPUSH ONETIME ONE Stop: 07/20/16 12:18 Last Admin: 07/20/16 12:20 Dose: 4 mg Ondansetron HCl (Zofran) 4 mg IVPUSH ONETIME ONE Stop: 07/20/16 15:46 Last Admin: 07/20/16 15:52 Dose: 4 mg - Exam General: alert, oriented HEENT: Pupils equal, Pupils reactive Lungs: Clear to auscultation, Normal respiratory effort Cardiovascular: Regular Rate, Regular Rhythm Abdomen: bowel sounds present, soft, no distension, tenderness (in LUQ but mild) Back Exam: normal inspection, full range of motion Extremities: no edema - Problem List & Annotations (1) Acute ischemic colitis SNOMED Code(s): 94746393 Code(s): K55.039 - ACUTE ISCHEMIA OF LARGE INTESTINE, EXTENT UNSPECIFIED Status: Acute Current Visit: Yes - Problem List Review Problem List Initiated/Reviewed/Updated: Yes - My Orders Last 24 Hours: My Active Orders 07/21/16 07:53 Acetaminophen [Tylenol] 650 mg PO Q6H PRN 07/21/16 19:19 Communication Order [RC] PER UNIT ROUTINE 07/22/16 Lunch Clear Liquid Diet [DIET] - Plan Plan:: Patient is 50yo M who presented with nausea vomiting and diarrhea [address] of the adbomen pelvis showed thickening and inflammation of the splenic flexture of the colon. The read was concerning for infectious colitis vs ischemic colitis. The patient was admited to the floor and made NPO with IVF and IV zosyn. He had slowly improved over the last 24 hours with his WBC coming down. His diet was advanced yesterday after which he has had two BM. His WBC is 14 this am which is relativelt unchanged from yesterday. His stool culture came back positive for camphylobacter antigen. When I asked the patient about strange food or water he has ingested he states that he did eat a beef tongue taco. Infectious colitis can cause ischemic colitis. From my stand point he is stable. No surgical indication at this point in time. He can continue a clear liquid diet for today. I appreciate medicines assistance in the care of this patient. He can have po medication and his antibiotics can be adjusted to appropriately cover Camphylobacter. Please call with any questions or concerns.
--- NOTE | 2016-07-22 09:11 | PCM.PN ---
- General Info Date of Service: 07/22/16 Admission Dx/Problem (Free Text): Colitis Subjective Update: Patient was advanced to clear liquids yesterday and subsequently had a bloody bowel movement. He continues with left sided abdominal pain. 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 Stool culture returned positive for campylobacter. Dr. Coe, general surgeon, continues to follow the patient and has recommended clear liquids, oral medications but no surgical intervention at this time. He has been afebrile. He denies chest pain, shortness of breath, calf pain. Functional Status: Reports: pain controlled, ambulating, urinating - Review of Systems General: Reports: No Symptoms HEENT: Reports: no symptoms Pulmonary: Reports: no symptoms Cardiovascular: Reports: No Symptoms Gastrointestinal: Reports: Abdominal pain (left sided), Decreased appetite, Diarrhea, Hematochezia. Denies: Nausea, Vomiting Genitourinary: Reports: no symptoms Musculoskeletal: Reports: no symptoms Skin: Reports: no symptoms Neurological: Reports: No Symptoms Psychiatric: Reports: no symptoms - Patient Data Vitals - most recent: Last Vital Signs Temp 96.8 F 07/22/16 08:16 Pulse 86 07/22/16 08:16 Resp 16 07/22/16 08:16 BP 145/83 H 07/22/16 08:16 Pulse Ox 95 07/22/16 08:16 Weight - most recent: 260 lb 3.2 oz I&O - last 24 hours: Intake & Output 07/21/16 07/22/16 07/22/16 22:59 06:59 14:59 Intake Total 2020 1500 Output Total 1050 1650 Balance 971 -150 Lab Results last 24 hrs: Laboratory Results - last 24 hr 07/21/16 07/21/16 07/21/16 Range/Units 09:02 12:21 14:58 WBC 13.80 H 13.92 H (4.0-11.0) K/uL RBC 4.40 L 4.38 L (4.50-5.90) M/uL Hgb 13.4 13.4 (13.0-17.0) g/dL Hct 39.5 39.7 (38.0-50.0) % MCV 89.8 90.6 (80.0-98.0) fL MCH 30.5 30.6 (27.0-32.0) pg MCHC 33.9 33.8 (31.0-37.0) g/dL RDW Std Deviation 41.5 42.1 (28.0-62.0) fl RDW Coeff of Aliza 13 13 (11.0-15.0) % Plt Count 191 188 (150-400) K/uL MPV 10.20 9.80 (7.40-12.00) fL Neut % (Auto) 74.0 73.1 (48.0-80.0) % Lymph % (Auto) 16.7 18.8 (16.0-40.0) % Bradley % (Auto) 9.0 7.6 (0.0-15.0) % Eos % (Auto) 0.2 0.4 (0.0-7.0) % Baso % (Auto) 0.1 0.1 (0.0-1.5) % Neut # (Auto) 10.2 H 10.2 H (1.4-5.7) K/uL Lymph # (Auto) 2.3 2.6 H (0.6-2.4) K/uL Bradley # (Auto) 1.2 H 1.1 H (0.0-0.8) K/uL Eos # (Auto) 0.0 0.1 (0.0-0.7) K/uL Baso # (Auto) 0.0 0.0 (0.0-0.1) K/uL Nucleated RBC % 0.0 0.0 /100WBC Nucleated RBCs # 0 0 K/uL Sodium (136-146) mmol/L Potassium (3.5-5.1) mmol/L Chloride (98-110) mmol/L Carbon Dioxide (21-31) mmol/L BUN (6.0-23.0) mg/dL Creatinine (0.6-1.5) mg/dL Est Cr Clr Drug Dosing mL/min Estimated GFR (MDRD) ml/min Glucose (60-110) mg/dL POC Glucose 174 H (60-110) mg/dL Calcium (8.8-10.8) mg/dL 07/21/16 07/21/16 07/21/16 Range/Units 18:32 21:05 23:24 WBC 13.80 H 14.02 H (4.0-11.0) K/uL RBC 4.44 L 4.38 L (4.50-5.90) M/uL Hgb 13.4 13.1 (13.0-17.0) g/dL Hct 40.4 39.8 (38.0-50.0) % MCV 91.0 90.9 (80.0-98.0) fL MCH 30.2 29.9 (27.0-32.0) pg MCHC 33.2 32.9 (31.0-37.0) g/dL RDW Std Deviation 42.3 42.4 (28.0-62.0) fl RDW Coeff of Aliza 13 13 (11.0-15.0) % Plt Count 186 184 (150-400) K/uL MPV 10.00 10.00 (7.40-12.00) fL Neut % (Auto) 70.6 71.3 (48.0-80.0) % Lymph % (Auto) 20.3 19.1 (16.0-40.0) % Bradley % (Auto) 8.3 8.8 (0.0-15.0) % Eos % (Auto) 0.6 0.6 (0.0-7.0) % Baso % (Auto) 0.2 0.2 (0.0-1.5) % Neut # (Auto) 9.8 H 10.0 H (1.4-5.7) K/uL Lymph # (Auto) 2.8 H 2.7 H (0.6-2.4) K/uL Bradley # (Auto) 1.1 H 1.2 H (0.0-0.8) K/uL Eos # (Auto) 0.1 0.1 (0.0-0.7) K/uL Baso # (Auto) 0.0 0.0 (0.0-0.1) K/uL Nucleated RBC % 0.0 0.0 /100WBC Nucleated RBCs # 0 0 K/uL Sodium (136-146) mmol/L Potassium (3.5-5.1) mmol/L Chloride (98-110) mmol/L Carbon Dioxide (21-31) mmol/L BUN (6.0-23.0) mg/dL Creatinine (0.6-1.5) mg/dL Est Cr Clr Drug Dosing mL/min Estimated GFR (MDRD) ml/min Glucose (60-110) mg/dL POC Glucose 186 H (60-110) mg/dL Calcium (8.8-10.8) mg/dL 07/21/16 07/22/16 07/22/16 Range/Units 23:46 04:59 04:59 WBC 14.49 H (4.0-11.0) K/uL RBC 4.21 L (4.50-5.90) M/uL Hgb 13.0 (13.0-17.0) g/dL Hct 38.2 (38.0-50.0) % MCV 90.7 (80.0-98.0) fL MCH 30.9 (27.0-32.0) pg MCHC 34.0 (31.0-37.0) g/dL RDW Std Deviation 42.2 (28.0-62.0) fl RDW Coeff of Aliza 13 (11.0-15.0) % Plt Count 189 (150-400) K/uL MPV 10.30 (7.40-12.00) fL Neut % (Auto) 74.5 (48.0-80.0) % Lymph % (Auto) 17.4 (16.0-40.0) % Bradley % (Auto) 7.6 (0.0-15.0) % Eos % (Auto) 0.3 (0.0-7.0) % Baso % (Auto) 0.2 (0.0-1.5) % Neut # (Auto) 10.8 H (1.4-5.7) K/uL Lymph # (Auto) 2.5 H (0.6-2.4) K/uL Bradley # (Auto) 1.1 H (0.0-0.8) K/uL Eos # (Auto) 0.1 (0.0-0.7) K/uL Baso # (Auto) 0.0 (0.0-0.1) K/uL Nucleated RBC % 0.0 /100WBC Nucleated RBCs # 0 K/uL Sodium 140 (136-146) mmol/L Potassium 3.8 (3.5-5.1) mmol/L Chloride 109 (98-110) mmol/L Carbon Dioxide 22 (21-31) mmol/L BUN 10 (6.0-23.0) mg/dL Creatinine 0.8 (0.6-1.5) mg/dL Est Cr Clr Drug Dosing 116.35 mL/min Estimated GFR (MDRD) > 60.0 ml/min Glucose 139 H (60-110) mg/dL POC Glucose 127 H (60-110) mg/dL Calcium 7.4 L (8.8-10.8) mg/dL Ray Results last 24 hrs: Microbiology 07/21/16 22:58 Clostridium difficile Toxin A&B (M) - Final Stool / Feces Negative for C.Diff Toxin/AG 07/21/16 22:58 Campylobacter Antigen Assay - Final Stool / Feces Positive Campylobacter Ag 07/21/16 22:58 Stool for WBCs - Final Stool / Feces POSITIVE FOR WBC'S Med Orders - Current: Current Medications Acetaminophen (Tylenol) 650 mg PO Q6H PRN PRN Reason: Headache Last Admin: 07/21/16 22:18 Dose: 650 mg Hydromorphone HCl (Dilaudid Healthcare Marketer 6 Mg In Ns 30 Ml) 6 mg IV ASDIRECTED PRN; Protocol PRN Reason: Abdominal Pain Last Admin: 07/22/16 08:04 Dose: 6 mg Hydromorphone HCl (Dilaudid) 1 mg IVPUSH Q2H PRN PRN Reason: Abdominal Pain Last Admin: 07/22/16 00:19 Dose: 1 mg Sodium Chloride (Normal Saline) 1,000 mls @ 175 mls/hr IV ASDIRECTED WOJCIECH Last Admin: 07/22/16 02:48 Dose: 100 mls/hr Piperacillin Sod/Tazobactam (Sod 4.5 gm/ Sodium Chloride) 100 mls @ 100 mls/hr IV Q6H WOJCIECH Last Admin: 07/22/16 03:15 Dose: 100 mls/hr Insulin Aspart (Novolog) 0 unit SUBCUT Q6H WOJCIECH PRN Reason: Protocol Last Admin: 07/22/16 05:50 Dose: Not Given Ondansetron HCl (Zofran) 4 mg IVPUSH Q4H PRN PRN Reason: Nausea Last Admin: 07/21/16 22:48 Dose: 4 mg Promethazine HCl (Phenergan) 12.5 mg IM Q6H PRN PRN Reason: Nausea/Vomiting Last Admin: 07/20/16 18:16 Dose: 12.5 mg Discontinued Medications Hydromorphone HCl (Dilaudid) 1 mg IM ONETIME ONE Stop: 07/20/16 15:46 Last Admin: 07/20/16 15:51 Dose: 1 mg Hydromorphone HCl (Dilaudid) 0.5 mg IVPUSH ONETIME ONE Stop: 07/20/16 16:43 Last Admin: 07/20/16 16:53 Dose: 0.5 mg Hyoscyamine (Hyomax-Sl) 0.125 mg SL ONETIME ONE Stop: 07/20/16 12:20 Last Admin: 07/20/16 12:32 Dose: 0.125 mg Sodium Chloride (Normal Saline) 1,000 mls @ 999 mls/hr IV STAT ONE Stop: 07/20/16 12:43 Last Admin: 07/20/16 11:51 Dose: 999 mls/hr Piperacillin Sod/Tazobactam (Sod 4.5 gm/ Sodium Chloride) 100 mls @ 100 mls/hr IV ONETIME ONE Stop: 07/20/16 16:51 Last Admin: 07/20/16 16:14 Dose: 100 mls/hr Sodium Chloride (Normal Saline) 1,000 mls @ 999 mls/hr IV STAT ONE Stop: 07/20/16 16:52 Last Infusion: 07/20/16 16:14 Dose: 100 mls/hr Insulin Aspart (Novolog) 0 unit SUBCUT Q6H WOJCIECH PRN Reason: Protocol Last Admin: 07/21/16 18:33 Dose: 1 unit Insulin Aspart (Novolog) 0 unit SUBCUT TIDAC WOJCIECH PRN Reason: Protocol Iopamidol (Isovue-370 (76%)) 100 ml IVPUSH ONETIME STA Stop: 07/20/16 16:05 Last Admin: 07/20/16 16:06 Dose: 100 ml Ondansetron HCl (Zofran) 4 mg IVPUSH ONETIME ONE Stop: 07/20/16 11:44 Last Admin: 07/20/16 11:52 Dose: 4 mg Ondansetron HCl (Zofran) 4 mg IVPUSH ONETIME ONE Stop: 07/20/16 12:18 Last Admin: 07/20/16 12:20 Dose: 4 mg Ondansetron HCl (Zofran) 4 mg IVPUSH ONETIME ONE Stop: 07/20/16 15:46 Last Admin: 07/20/16 15:52 Dose: 4 mg - Exam Quality Assessment: DVT prophylaxis (SCD's) General: alert, oriented, cooperative Neck: supple Lungs: Clear to auscultation, Normal respiratory effort Cardiovascular: Regular Rate, Regular Rhythm Abdomen: bowel sounds present, soft, no distension, guarding (left side of abdomen), tenderness (with palpation on left side of abdomen) Extremities: no edema, no calf tenderness Peripheral Pulses: 2+: radial (L), radial (R) Skin: warm, dry, intact Neurological: no new focal deficit Psy/Mental Status: alert, normal affect, normal mood - Problem List & Annotations (1) Acute ischemic colitis SNOMED Code(s): 83411932 Code(s): K55.039 - ACUTE ISCHEMIA OF LARGE INTESTINE, EXTENT UNSPECIFIED Status: Acute Current Visit: Yes (2) Campylobacter antigen positive SNOMED Code(s): 579467603 Code(s): A04.5 - CAMPYLOBACTER ENTERITIS Status: Acute Current Visit: Yes (3) Diabetes mellitus SNOMED Code(s): 22636839 Code(s): E11.9 - TYPE 2 DIABETES MELLITUS WITHOUT COMPLICATIONS Status: Acute Current Visit: Yes Qualifiers: Diabetes mellitus type: type 2 Diabetes mellitus complication status: without complication Diabetes mellitus halfway insulin use: without direct support staff use Qualified Code(s): E11.9 - Type 2 diabetes mellitus without complications - Problem List Review Problem List Initiated/Reviewed/Updated: Yes - Plan Plan:: 1. Acute infectious colitis secondary to campylobacter: -continue to follow the recommendations of Dr. Coe, general surgery. 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 -Tylenol for fever and pain -ice chips and PO medications. Will advance as tolerated. -antibiotics switched from Zosyn to Levaquin 750mg q24hrs. -IVF decreased to 125cc/hr 2. Newly diagnosed diabetic: -HBA1C is 9.6% -referral will be placed to hotel director
[2016-07-22] MEDS: Acetaminophen 325 MG Tab PO PRN ×2 (09:35→17:57)
[2016-07-22] MEDS: Levofloxacin/Dextrose 5%-Water 750 MG in Premix Bag 1 BAG IV SCH (09:42)
[2016-07-23] MEDS: Acetaminophen 325 MG Tab PO PRN ×2 (00:28→09:28)
[2016-07-23] MEDS: Sodium Chloride 0.9% 1,000 ML IV SCH (02:02)
[2016-07-23 05:25] LABS: CHLORIDE,CL 109 mmol/L (98-110); SODIUM,NA 142 mmol/L (136-146)
[2016-07-23] MEDS: Insulin Aspart 100 Units/ML 3 ML Pen SUBCUT SCH ×3 (07:21→17:46)
--- NOTE | 2016-07-23 07:40 | PCM.SN ---
- Free Text/Narrative Note: Patient was stable overnight and wbc 11. His abdominal exam has not changed. I would advance diet as tolerated. Will sign off at this time. Please call with question or concerns. Patient can come see me in clinic one month after this visit for colonoscopy.
[2016-07-23] MEDS: Levofloxacin/Dextrose 5%-Water 750 MG in Premix Bag 1 BAG IV SCH (09:28)
[2016-07-23] MEDS: oxyCODONE 5 MG Tab PO PRN ×2 (11:21→15:23)
--- NOTE | 2016-07-23 12:07 | PCM.PN ---
- General Info Date of Service: 07/23/16 Admission Dx/Problem (Free Text): Colitis Subjective Update: Patient feeling better today. Abdominal pain has improved. He did have a BM yesterday without any blood. He is slowly advancing his diet and tolerating this well. He has no other concerns today. Functional Status: Reports: pain controlled, tolerating diet, ambulating, urinating - Review of Systems General: Reports: No Symptoms HEENT: Reports: no symptoms Pulmonary: Reports: no symptoms Cardiovascular: Reports: No Symptoms Gastrointestinal: Reports: Abdominal pain (improving). Denies: Nausea, Vomiting Genitourinary: Reports: no symptoms Musculoskeletal: Reports: no symptoms Skin: Reports: no symptoms Neurological: Reports: No Symptoms Psychiatric: Reports: no symptoms - Patient Data Vitals - most recent: Last Vital Signs Temp 98.0 F 07/23/16 11:00 Pulse 68 07/23/16 11:00 Resp 20 07/23/16 11:00 BP 120/85 07/23/16 11:00 Pulse Ox 95 07/23/16 11:00 Weight - most recent: 260 lb 3.2 oz I&O - last 24 hours: Intake & Output 07/22/16 07/23/16 07/23/16 22:59 06:59 14:59 Intake Total 1200 1711 150 Output Total 1900 2075 Balance -700 -364 150 Lab Results last 24 hrs: Laboratory Results - last 24 hr 07/22/16 07/22/16 07/23/16 Range/Units 16:40 21:05 04:20 WBC 11.05 H (4.0-11.0) K/uL RBC 4.18 L (4.50-5.90) M/uL Hgb 12.6 L (13.0-17.0) g/dL Hct 38.0 (38.0-50.0) % MCV 90.9 (80.0-98.0) fL MCH 30.1 (27.0-32.0) pg MCHC 33.2 (31.0-37.0) g/dL RDW Std Deviation 42.0 (28.0-62.0) fl RDW Coeff of Aliza 13 (11.0-15.0) % Plt Count 189 (150-400) K/uL MPV 10.30 (7.40-12.00) fL Neut % (Auto) 67.9 (48.0-80.0) % Lymph % (Auto) 21.7 (16.0-40.0) % Morgan % (Auto) 8.1 (0.0-15.0) % Eos % (Auto) 2.0 (0.0-7.0) % Baso % (Auto) 0.3 (0.0-1.5) % Neut # (Auto) 7.5 H (1.4-5.7) K/uL Lymph # (Auto) 2.4 (0.6-2.4) K/uL Morgan # (Auto) 0.9 H (0.0-0.8) K/uL Eos # (Auto) 0.2 (0.0-0.7) K/uL Baso # (Auto) 0.0 (0.0-0.1) K/uL Nucleated RBC % 0.0 /100WBC Nucleated RBCs # 0 K/uL Sodium (136-146) mmol/L Potassium (3.5-5.1) mmol/L Chloride (98-110) mmol/L Carbon Dioxide (21-31) mmol/L BUN (6.0-23.0) mg/dL Creatinine (0.6-1.5) mg/dL Est Cr Clr Drug Dosing mL/min Estimated GFR (MDRD) ml/min Glucose (60-110) mg/dL POC Glucose 118 H 170 H (60-110) mg/dL Calcium (8.8-10.8) mg/dL Total Bilirubin (0.1-1.5) mg/dL AST (5-40) IU/L ALT (8-54) IU/L Alkaline Phosphatase (40-150) Total Protein (6.0-8.0) g/dL Albumin (3.5-5.0) g/dL Globulin (2.0-3.5) g/dL Albumin/Globulin Ratio (1.3-2.8) 07/23/16 07/23/16 Range/Units 04:20 06:29 WBC (4.0-11.0) K/uL RBC (4.50-5.90) M/uL Hgb (13.0-17.0) g/dL Hct (38.0-50.0) % MCV (80.0-98.0) fL MCH (27.0-32.0) pg MCHC (31.0-37.0) g/dL RDW Std Deviation (28.0-62.0) fl RDW Coeff of Aliza (11.0-15.0) % Plt Count (150-400) K/uL MPV (7.40-12.00) fL Neut % (Auto) (48.0-80.0) % Lymph % (Auto) (16.0-40.0) % Morgan % (Auto) (0.0-15.0) % Eos % (Auto) (0.0-7.0) % Baso % (Auto) (0.0-1.5) % Neut # (Auto) (1.4-5.7) K/uL Lymph # (Auto) (0.6-2.4) K/uL Morgan # (Auto) (0.0-0.8) K/uL Eos # (Auto) (0.0-0.7) K/uL Baso # (Auto) (0.0-0.1) K/uL Nucleated RBC % /100WBC Nucleated RBCs # K/uL Sodium 142 (136-146) mmol/L Potassium 3.6 (3.5-5.1) mmol/L Chloride 109 (98-110) mmol/L Carbon Dioxide 23 (21-31) mmol/L BUN 7 (6.0-23.0) mg/dL Creatinine 0.8 (0.6-1.5) mg/dL Est Cr Clr Drug Dosing 116.35 mL/min Estimated GFR (MDRD) > 60.0 ml/min Glucose 124 H (60-110) mg/dL POC Glucose 114 H (60-110) mg/dL Calcium 7.7 L (8.8-10.8) mg/dL Total Bilirubin 0.6 (0.1-1.5) mg/dL AST 19 (5-40) IU/L ALT 16 (8-54) IU/L Alkaline Phosphatase 58 (40-150) Total Protein 5.4 L (6.0-8.0) g/dL Albumin 3.3 L (3.5-5.0) g/dL Globulin 2.1 (2.0-3.5) g/dL Albumin/Globulin Ratio 1.6 (1.3-2.8) Ray Results last 24 hrs: Microbiology 07/21/16 22:58 Stool Culture - Final Stool / Feces NO SALMONELLA, SHIGELLA,OR E.COLI O157 ISOLATED Campylobacter Antigen Assay - Final Positive Campylobacter Ag - Final NEGATIVE FOR SHIGA TOXIN 1 - Final NEGATIVE FOR SHIGA TOXIN 2 Med Orders - Current: Current Medications Acetaminophen (Tylenol) 650 mg PO Q6H PRN PRN Reason: Headache Last Admin: 07/23/16 09:28 Dose: 650 mg Levofloxacin/Dextrose 750 mg/ (Premix) 150 mls @ 100 mls/hr IV Q24H WOJCIECH Last Admin: 07/23/16 09:28 Dose: 100 mls/hr Insulin Aspart (Novolog) 0 unit SUBCUT QIDACANDBED WOJCIECH PRN Reason: Protocol Last Admin: 07/23/16 11:35 Dose: Not Given Ondansetron HCl (Zofran) 4 mg IVPUSH Q4H PRN PRN Reason: Nausea Last Admin: 07/21/16 22:48 Dose: 4 mg Oxycodone HCl (Oxycodone) 5 mg PO Q4H PRN PRN Reason: Pain Last Admin: 07/23/16 11:21 Dose: 5 mg Promethazine HCl (Phenergan) 12.5 mg IM Q6H PRN PRN Reason: Nausea/Vomiting Last Admin: 07/20/16 18:16 Dose: 12.5 mg Discontinued Medications Hydromorphone HCl (Dilaudid) 1 mg IM ONETIME ONE Stop: 07/20/16 15:46 Last Admin: 07/20/16 15:51 Dose: 1 mg Hydromorphone HCl (Dilaudid) 0.5 mg IVPUSH ONETIME ONE Stop: 07/20/16 16:43 Last Admin: 07/20/16 16:53 Dose: 0.5 mg Hydromorphone HCl (Dilaudid Radio Program Director 6 Mg In Ns 30 Ml) 6 mg IV ASDIRECTED PRN; Protocol PRN Reason: Abdominal Pain Last Admin: 07/22/16 21:26 Dose: 6 mg Hydromorphone HCl (Dilaudid) 1 mg IVPUSH Q2H PRN PRN Reason: Abdominal Pain Last Admin: 07/22/16 00:19 Dose: 1 mg Hyoscyamine (Hyomax-Sl) 0.125 mg SL ONETIME ONE Stop: 07/20/16 12:20 Last Admin: 07/20/16 12:32 Dose: 0.125 mg Sodium Chloride (Normal Saline) 1,000 mls @ 999 mls/hr IV STAT ONE Stop: 07/20/16 12:43 Last Admin: 07/20/16 11:51 Dose: 999 mls/hr Piperacillin Sod/Tazobactam (Sod 4.5 gm/ Sodium Chloride) 100 mls @ 100 mls/hr IV ONETIME ONE Stop: 07/20/16 16:51 Last Admin: 07/20/16 16:14 Dose: 100 mls/hr Sodium Chloride (Normal Saline) 1,000 mls @ 999 mls/hr IV STAT ONE Stop: 07/20/16 16:52 Last Infusion: 07/20/16 16:14 Dose: 100 mls/hr Sodium Chloride (Normal Saline) 1,000 mls @ 175 mls/hr IV ASDIRECTED [facility] Last Admin: 07/22/16 09:39 Dose: 100 mls/hr Piperacillin Sod/Tazobactam (Sod 4.5 gm/ Sodium Chloride) 100 mls @ 100 mls/hr IV Q6H [facility] Last Admin: 07/22/16 03:15 Dose: 100 mls/hr Sodium Chloride (Normal Saline) 1,000 mls @ 125 mls/hr IV ASDIRECTED [facility] Last Admin: 07/23/16 02:02 Dose: 125 mls/hr Insulin Aspart (Novolog) 0 unit SUBCUT Q6H WOJCIECH PRN Reason: Protocol Last Admin: 07/21/16 18:33 Dose: 1 unit Insulin Aspart (Novolog) 0 unit SUBCUT TIDAC [facility] PRN Reason: Protocol Insulin Aspart (Novolog) 0 unit SUBCUT Q6H WOJCIECH PRN Reason: Protocol Last Admin: 07/22/16 11:48 Dose: Not Given Iopamidol (Isovue-370 (76%)) 100 ml IVPUSH ONETIME STA Stop: 07/20/16 16:05 Last Admin: 07/20/16 16:06 Dose: 100 ml Ondansetron HCl (Zofran) 4 mg IVPUSH ONETIME ONE Stop: 07/20/16 11:44 Last Admin: 07/20/16 11:52 Dose: 4 mg Ondansetron HCl (Zofran) 4 mg IVPUSH ONETIME ONE Stop: 07/20/16 12:18 Last Admin: 07/20/16 12:20 Dose: 4 mg Ondansetron HCl (Zofran) 4 mg IVPUSH ONETIME ONE Stop: 07/20/16 15:46 Last Admin: 07/20/16 15:52 Dose: 4 mg - Exam Quality Assessment: DVT prophylaxis (SCD's) General: alert, oriented, cooperative, no acute distress Lungs: Clear to auscultation, Normal respiratory effort Cardiovascular: Regular Rate, Regular Rhythm Abdomen: bowel sounds present, soft, no distension, tenderness (improved with palpation on left side of abdomen) Extremities: no edema, no calf tenderness Peripheral Pulses: 2+: radial (L), radial (R) Skin: warm, dry, intact Neurological: no new focal deficit Psy/Mental Status: alert, normal affect, normal mood - Problem List & Annotations (1) Acute ischemic colitis SNOMED Code(s): 70837016 Code(s): K55.039 - ACUTE ISCHEMIA OF LARGE INTESTINE, EXTENT UNSPECIFIED Status: Acute Current Visit: Yes (2) Campylobacter antigen positive SNOMED Code(s): 252000107 Code(s): A04.5 - CAMPYLOBACTER ENTERITIS Status: Acute Current Visit: Yes (3) Diabetes mellitus SNOMED Code(s): 73068595 Code(s): E11.9 - TYPE 2 DIABETES MELLITUS WITHOUT COMPLICATIONS Status: Acute Current Visit: Yes Qualifiers: Diabetes mellitus type: type 2 Diabetes mellitus complication status: without complication Diabetes mellitus assistant terminal manager insulin use: without jail use Qualified Code(s): E11.9 - Type 2 diabetes mellitus without complications - Problem List Review Problem List Initiated/Reviewed/Updated: Yes - Plan Plan:: 1. Acute infectious colitis secondary to campylobacter: -Dr. Coe from general surgery has signed off on the patient but available if needed. -Dilaudid KILN TENDER d/c and switched to oxycodone 5mg PO q4hr prn -advance diet as tolerated -Continue Levaquin 750mg IV q24hrs -IVF d/c 2. Newly diagnosed diabetic: -HBA1C is 9.6% -seen by rn diabetes educator potential d/c this afternoon
[2016-07-23 15:54] VITALS: BP 135/82
--- NOTE | 2016-07-28 15:43 | PCM.DCSUM1 ---
Discharge Summary - Hospital Course Free Text/Narrative:: Admission diagnosis: 1. abdominal pain with diarrhea Discharge diagnosis: 1. Diarrhea secondary to campylobacter, improved 2. Newly diagnosed type 2 diabetic 50 year old male admitted with abdominal pain and bloody diarrhea. Abdomen/ pelvic CT suggested colitis from the mid to distal transverse colon to splenic flexure and upper descending colon. Patient was started on Zosyn, IVF and made NPO. Dr. Michelle Coe, general surgery, was consulted and followed the patient closely through admission. Stool cultures returned positive for campylobacter and the patients antibiotic was switched to Levaquin. With this switch his WBC count improved from 17,000 to 11,000. Abdominal pain was managed with appropriate pain medications and improved throughout hospitalization. Frequency of diarrhea was improved throughout admission. Patients diet was advanced as tolerated through his stay and patient was tolerating oral intake at time of discharge. Patient was also found to be a newly diagnosed type 2 diabetic with HBA1C os 9.6%. He was seen by the critical care educator while admitted. - Discharge Data Discharge Date: 07/23/16 Discharge Disposition: Home, Self-Care 01 Condition: Fair - Discharge Diagnosis/Problem(s) (1) Acute ischemic colitis SNOMED Code(s): 51524418 ICD Code: K55.039 - ACUTE ISCHEMIA OF LARGE INTESTINE, EXTENT UNSPECIFIED Status: Acute (2) Campylobacter antigen positive SNOMED Code(s): 738673890 ICD Code: A04.5 - CAMPYLOBACTER ENTERITIS Status: Acute (3) Diabetes mellitus SNOMED Code(s): 75899749 ICD Code: E11.9 - TYPE 2 DIABETES MELLITUS WITHOUT COMPLICATIONS Status: Acute Qualifiers: Diabetes mellitus type: type 2 Diabetes mellitus complication status: without complication Diabetes mellitus intermodal customer service insulin use: without usp use Qualified Code(s): E11.9 - Type 2 diabetes mellitus without complications - Patient Summary/Data Consults: Consultations 07/22/16 09:34 Consult to Diabetic Nurse Specialist [CONS] Routine - Patient Instructions Diet: Diabetic Diet Diet, Other: ADVANCE DIET VERY SLOWLY TO YOUR REGULAR DIET Activity: As Tolerated Driving: May Drive Today Showering/Bathing: May Shower Notify Provider of: Fever, Increased Pain, Nausea and/or Vomiting - Discharge Plan Prescriptions/Med Rec: Levofloxacin [Levaquin] 750 mg PO DAILY #7 tablet Home Medications: Home Meds Buprenorphine HCl/Naloxone HCl [Suboxone 4 mg-1 mg Sl Film] 8 mg PO ASDIRECTED PRN 11/06/15 [History] Simvastatin [Zocor] 40 mg PO BEDTIME 11/06/15 [History] Valsartan/Hydrochlorothiazide [Valsartan-Hctz 160-25 mg Tab] 1 tab PO DAILY [History] Venlafaxine HCl [Venlafaxine ER] 75 mg PO DAILY 07/21/16 [History] Levofloxacin [Levaquin] 750 mg PO DAILY #7 tablet 07/23/16 [Rx] oxyCODONE 5 mg PO Q4H PRN #12 tablet 07/23/16 [Rx] Patient Handouts: Oxycodone tablets or capsules, Ulcerative Colitis, Adult, Levofloxacin tablets Forms: ED Department Discharge Referrals: Jt Arellano MD [Primary Care Provider] - 07/30/16 8:30 am (Check in at 8: 15 a.m.) - Discharge Summary/Plan Comment DC Time >30 min.: No Discharge Summary/Plan Comment: Admission diagnosis: 1. abdominal pain with diarrhea Discharge diagnosis: 1. Diarrhea secondary to campylobacter, improved 2. Newly diagnosed type 2 diabetic 50 year old male admitted with abdominal pain and bloody diarrhea. Abdomen/ pelvic CT suggested colitis from the mid to distal transverse colon to splenic flexure and upper descending colon. Patient was started on Zosyn, IVF and made NPO. Dr. Michelle Coe, general surgery, was consulted and followed the patient closely through admission. Stool cultures returned positive for campylobacter and the patients antibiotic was switched to Levaquin. With this switch his WBC count improved from 17,000 to 11,000. Abdominal pain was managed with appropriate pain medications and improved throughout hospitalization. Frequency of diarrhea was improved throughout admission. Patients diet was advanced as tolerated through his stay and patient was tolerating oral intake at time of discharge. Patient was also found to be a newly diagnosed type 2 diabetic with HBA1C os 9.6%. He was seen by the critical care educator while admitted. Discharge plan: 1. Prescribed Levaquin 750mg daily for 7 days 2. Prescribed Oxycodone 5mg tab q4hrs prn abdominal pain, 12 tabs, 0 refills 3. advance diet very slowly 4. F/u with Dr. Arellano on 07/30/16 - Patient Data Vitals - Most Recent: Last Vital Signs Temp 98.4 F 07/23/16 15:00 Pulse 63 07/23/16 15:00 Resp 20 07/23/16 15:00 BP 135/82 07/23/16 15:00 Pulse Ox 99 07/23/16 15:00 Weight - Most Recent: 260 lb 3.2 oz Med Orders - Current: Current Medications Discontinued Medications Acetaminophen (Tylenol) 650 mg PO Q6H PRN PRN Reason: Headache Last Admin: 07/23/16 09:28 Dose: 650 mg Hydromorphone HCl (Dilaudid) 1 mg IM ONETIME ONE Stop: 07/20/16 15:46 Last Admin: 07/20/16 15:51 Dose: 1 mg Hydromorphone HCl (Dilaudid) 0.5 mg IVPUSH ONETIME ONE Stop: 07/20/16 16:43 Last Admin: 07/20/16 16:53 Dose: 0.5 mg Hydromorphone HCl (Dilaudid Batter Depositor 6 Mg In Ns 30 Ml) 6 mg IV ASDIRECTED PRN; Protocol PRN Reason: Abdominal Pain Last Admin: 07/22/16 21:26 Dose: 6 mg Hydromorphone HCl (Dilaudid) 1 mg IVPUSH Q2H PRN PRN Reason: Abdominal Pain Last Admin: 07/22/16 00:19 Dose: 1 mg Hyoscyamine (Hyomax-Sl) 0.125 mg SL ONETIME ONE Stop: 07/20/16 12:20 Last Admin: 07/20/16 12:32 Dose: 0.125 mg Sodium Chloride (Normal Saline) 1,000 mls @ 999 mls/hr IV STAT ONE Stop: 07/20/16 12:43 Last Admin: 07/20/16 11:51 Dose: 999 mls/hr Piperacillin Sod/Tazobactam (Sod 4.5 gm/ Sodium Chloride) 100 mls @ 100 mls/hr IV ONETIME ONE Stop: 07/20/16 16:51 Last Admin: 07/20/16 16:14 Dose: 100 mls/hr Sodium Chloride (Normal Saline) 1,000 mls @ 999 mls/hr IV STAT ONE Stop: 07/20/16 16:52 Last Infusion: 07/20/16 16:14 Dose: 100 mls/hr Sodium Chloride (Normal Saline) 1,000 mls @ 175 mls/hr IV ASDIRECTED [facility] Last Admin: 07/22/16 09:39 Dose: 100 mls/hr Piperacillin Sod/Tazobactam (Sod 4.5 gm/ Sodium Chloride) 100 mls @ 100 mls/hr IV Q6H [facility] Last Admin: 07/22/16 03:15 Dose: 100 mls/hr Levofloxacin/Dextrose 750 mg/ (Premix) 150 mls @ 100 mls/hr IV Q24H [facility] Last Admin: 07/23/16 09:28 Dose: 100 mls/hr Sodium Chloride (Normal Saline) 1,000 mls @ 125 mls/hr IV ASDIRECTED [facility] Last Admin: 07/23/16 02:02 Dose: 125 mls/hr Insulin Aspart (Novolog) 0 unit SUBCUT Q6H [facility] PRN Reason: Protocol Last Admin: 07/21/16 18:33 Dose: 1 unit Insulin Aspart (Novolog) 0 unit SUBCUT TIDAC [facility] PRN Reason: Protocol Insulin Aspart (Novolog) 0 unit SUBCUT Q6H [facility] PRN Reason: Protocol Last Admin: 07/22/16 11:48 Dose: Not Given Insulin Aspart (Novolog) 0 unit SUBCUT QIDACANDBED [facility] PRN Reason: Protocol Last Admin: 07/23/16 17:46 Dose: Not Given Iopamidol (Isovue-370 (76%)) 100 ml IVPUSH ONETIME STA Stop: 07/20/16 16:05 Last Admin: 07/20/16 16:06 Dose: 100 ml Ondansetron HCl (Zofran) 4 mg IVPUSH ONETIME ONE Stop: 07/20/16 11:44 Last Admin: 07/20/16 11:52 Dose: 4 mg Ondansetron HCl (Zofran) 4 mg IVPUSH ONETIME ONE Stop: 07/20/16 12:18 Last Admin: 07/20/16 12:20 Dose: 4 mg Ondansetron HCl (Zofran) 4 mg IVPUSH ONETIME ONE Stop: 07/20/16 15:46 Last Admin: 07/20/16 15:52 Dose: 4 mg Ondansetron HCl (Zofran) 4 mg IVPUSH Q4H PRN PRN Reason: Nausea Last Admin: 07/21/16 22:48 Dose: 4 mg Oxycodone HCl (Oxycodone) 5 mg PO Q4H PRN PRN Reason: Pain Last Admin: 07/23/16 15:23 Dose: 5 mg Promethazine HCl (Phenergan) 12.5 mg IM Q6H PRN PRN Reason: Nausea/Vomiting Last Admin: 07/20/16 18:16 Dose: 12.5 mg *Q Meaningful Use (DIS) - VTE *Q VTE Criteria *Q: - Stroke *Q Stroke Criteria *Q: - AMI *Q AMI Criteria *Q:
== END 2016-07-23 18:00 | disposition home or self-care (01) | DRG 246 ==
LOC: MW.ED 11:15 → MW.MS 16:20
PROVIDERS: ADMIT Internal Medicine; ATTEND Internal Medicine
DX: K55.039 Acute (reversible) ischemia of large intestine, extent unspecified (principal); A04.5 Campylobacter enteritis; E78.5 Hyperlipidemia, unspecified; I10 Essential (primary) hypertension; F17.200 Nicotine dependence, unspecified, uncomplicated; F41.8 Other specified anxiety disorders; G62.9 Polyneuropathy, unspecified; E11.9 Type 2 diabetes mellitus without complications; Z79.899 Other long term (current) drug therapy
CPT/HCPCS: 36415; 74177; 74177-26; 80048; 80053; 81001; 82150; 82962; 83036; 83605; 83630; 83690; 85025; 87046; 87324; 87899; 96365; 96375; 96376; 99285; 99285-25; A9270-GY; J1170; J1815-GY; J1956; J2405; J2543; J2550; J7030; J7040; Q9967

== ENCOUNTER → 2016-08-26 | Outpatient (CLI) | payer BC ==
[2016-08-26 10:25] LABS: CHLORIDE,CL 104 mmol/L (98-110); SODIUM,NA 138 mmol/L (136-146)
== END ==
LOC: MW.CHIM 09:44
PROVIDERS: ATTEND Internal Medicine
DX: I10 Essential (primary) hypertension (principal); E78.00 Pure hypercholesterolemia, unspecified; E66.9 Obesity, unspecified; E11.9 Type 2 diabetes mellitus without complications
CPT/HCPCS: 36415; 80053; 80061; 83036; 83525; 85025; 85652; 86140; 86341